=== PATIENT | female | born 1945 ===

== ENCOUNTER 2016-12-28 22:47 | Observation (INO) | payer MEDICAID ==
[2016-12-28 23:18] VITALS: BMI 18.8
--- NOTE | 2016-12-28 23:49 | ED PDOC ---
Arrival/HPI - General Chief Complaint: Fever Time Seen by Provider: 12/28/16 23:19 Historian: Patient, Family - History of Present Illness Narrative History of Present Illness (Text): 12/28/16 23:39 Mike Araya is a 71 year old female, whose past medical history includes diabetes, hypertension, papillary thyroid carcinoma, tracheostomy, and PEG tube , complaining of fever and progressively worsening weakness for 8 days. Patient' s daughter states that patient just came back from the [facility] 8 days ago and got a fever the next morning. Patient saw her ENT doctor the day after and was prescribed Levaquin for a cough productive of yellow phlegm, which she has been taking for the last 6 days. Patient's daughter notes that the patient has experienced fevers for 2 days and after taking Levaquin, experienced diarrhea for 1 day. Patient notes that she also has persistent productive coughs with yellow sputum. Patient denies any abdominal pain, nausea, vomiting, urinary symptoms, or any other complaint at this time. PMD: Dr. Lázaro Morris Time/Duration: > week Symptom Onset: Gradual Symptom Course: Worsening Severity Level: Moderate Activities at Onset: Rest Context: Home Past Medical History - Provider Review Nursing Documentation Reviewed: Yes - Infectious Disease Hx of Infectious Diseases: None - Tetanus Immunization Tetanus Immunization: Unknown - Cardiac Hx Hypertension: Yes - Pulmonary Other/Comment: Tracheostomy present - Neurological Hx Neurological Disorder: No Hx Alzheimer's Disease: No HX Cerebrovascular Accident: No Hx Dementia: No Hx Dizziness: No Hx Meningitis: No Hx Migraine: No Hx Parkinson's Disease: No Hx Seizures: No Hx Transient Ischemic Attacks (TIA): No - HEENT Hx HEENT Disorder: No Hx Blind: No Hx Cataracts: No Hx Deafness: No Hx Difficulty Chewing: No Hx Epistaxis: No Hx Glaucoma: No Hx Macular Degeneration: No - Renal Hx Renal Disorder: No Hx Dialysis: No Hx Kidney Stones: No Hx Neurogenic Bladder: No Hx Pyelonephritis: No Hx Renal Cancer: No Hx Renal Failure: No - Endocrine/Metabolic Other/Comment: Thyroid CA - Hematological/Oncological Hx Blood Disorders: No Hx AIDS: No Hx Anemia: No Hx Cancer: Yes Hx Chemotherapy: Yes Hx Cirrhosis: No Hx Hemophilia: No Hx Hepatitis A: No Hx Hepatitis B: No Hx Hepatitis C: No Hx Metastasis: No Hx Shingles: No Hx Sickle Cell Disease: No Hx Unexplained Bleeding: No - Integumentary Hx Dermatological Disorder: No Hx Basal Cell Carcinoma: No Hx Eczema: No Hx Melanoma: No Hx Psoriasis: No Hx Squamous Cell Carcinoma: No - Musculoskeletal/Rheumatological Hx Musculoskeletal Disorders: No Hx Arthritis: No Hx Degenerative Joint Disease: No Hx Falls: No Hx Gout: No Hx Herniated Disk: No Hx Myasthenia Gravis: No Hx Osteoarthritis: No Hx Osteomyelitis: No Hx Osteoporosis: No Hx Rhabdomyolysis: No Hx Spinal Stenosis: No Hx Unsteady Gait: No - Gastrointestinal Other/Comment: PEG tube present. - Genitourinary/Gynecological Hx Genitourinary Disorders: No Hx Hematuria: No Hx Incontinence: No Hx Prostate Problems: No Hx Sexually Transmitted Diseases: No - Psychiatric Hx Psychophysiologic Disorder: No Hx Anxiety: No Hx Bipolar Disorder: No Hx Depression: No Hx Emotional Abuse: No Hx Hallucinations: No Hx Panic Disorder: No Hx Post Traumatic Stress Disorder: No Hx Psychosis: No Hx Physical Abuse: No Hx Schizophrenia: No Hx Sexual Abuse: No Hx Substance Use: No - Surgical History Other/Comment: 3 thyroid sx, trach placement and peg tube - Anesthesia Hx Anesthesia: Yes - Suicidal Assessment Feels Threatened In Home Enviroment: No Family/Social History - Physician Review Nursing Documentation Reviewed: Yes Family/Social History: No Known Family HX Smoking Status: Unknown If Ever Smoked Hx Alcohol Use: No Hx Substance Use: No Allergies/Home Meds Allergies/Adverse Reactions: Allergies shellfish derived Allergy (Verified 12/28/16 23:20) ANAPHYLAXIS Home Medications: Home Meds Medication Instructions Recorded Confirmed Levothyroxine [Synthroid] 88 mcg PO DAILY 09/05/15 12/28/16 Metformin ER [Glucophage XR] 500 mg PO BID 09/05/15 12/28/16 Rosuvastatin Calcium [Crestor] 10 mg PO DAILY 09/05/15 12/28/16 SITagliptin [Januvia] 100 mg PO DAILY 09/05/15 12/28/16 amLODIPine [Norvasc] 10 mg PO DAILY 09/05/15 12/28/16 Losartan [Cozaar] 25 mg PO DAILY 12/28/16 12/28/16 Pantoprazole [Protonix] 40 mg PO DAILY 12/28/16 12/28/16 Review of Systems - Physician Review All systems were reviewed & negative as marked: Yes - Review of Systems Constitutional: Fevers, Other (generalized weakness). absent: Night Sweats Eyes: absent: Vision Changes ENT: absent: Hearing Changes Respiratory: Cough, Sputum. absent: SOB Cardiovascular: absent: Chest Pain Gastrointestinal: absent: Abdominal Pain Genitourinary Female: absent: Urine Output Changes Musculoskeletal: absent: Arthralgias Skin: absent: Rash Neurological: absent: Headache Endocrine: absent: Diaphoresis Hemo/Lymphatic: absent: Adenopathy Psychiatric: absent: Depression Physical Exam Vital Signs Reviewed: Yes Vital Signs Temp Pulse Resp BP Pulse Ox 12/29/16 04:07 80 16 111/59 L 96 12/28/16 23:54 98.4 F 12/28/16 23:17 98.6 F 84 18 112/81 96 Temperature: Afebrile Blood Pressure: Normal Pulse: Regular Respiratory Rate: Normal Pain Distress: None Mental Status: Positive for: Alert and Oriented X 3 - Systems Exam Head: Present: Atraumatic, Normocephalic Pupils: Present: PERRL Conjunctiva: Present: Normal Mouth: Present: Dry Pharnyx: Present: Normal. No: ERYTHEMA, EXUDATE Neck: Present: Normal Range of Motion, Other (trach) Respiratory/Chest: Present: Decreased Breath Sounds (at the bases). No: Respiratory Distress, Accessory Muscle Use Cardiovascular: Present: Regular Rate and Rhythm, Normal S1, S2. No: Murmurs Abdomen: Present: Normal Bowel Sounds, Feeding Tubes. No: Tenderness, Distention, Peritoneal Signs Back: Present: Normal Inspection Upper Extremity: Present: Normal Inspection. No: Cyanosis, Edema Lower Extremity: Present: Normal Inspection. No: Edema Neurological: Present: GCS=15, CN II-XII Intact, Speech Normal Skin: Present: Warm, Dry, Normal Color. No: Rashes Psychiatric: Present: Alert, Oriented x 3, Normal Insight, Normal Concentration Medical Decision Making ED Course and Treatment: 12/28/16 23:20 Impression: 71 year old female complaining of fever and progressively worsening weakness for 8 days. Differential Diagnosis included but are not limited to: pneumonia vs. travel related illness such as typhoid or less likely Dengue or less likely malaria vs atypical symptoms for PE Plan: -- Reassess and disposition Prior Visits: Notes and results from previous visits were reviewed. Patient last seen in the ED on 05/03/16 for posterior and frontal headache for the last 5 days. Patient was discharged home. Progress Notes: 12/29/16 01:27 Reviewed radiology, chest x-ray which is NAD. 12/29/16 05:08 Patient is an elderly female diabetic with a cancer history with recent international travel returning with fever, on levaquin. Patient with consolidation on CT scan of the chest. She continues to feel generalized weakness with a cough productive of greenish-yellow plegm. She has failed outpatient therapy and will need iv antibiotics. Also of note, levaquin may have partially treated travel-related illness which remains on the differential. 12/29/16 05:15 Will use maxipime and vanco. Case discussed with Dr. Brenner for placement on the hospitalist service. - Lab Interpretations Lab Results: 12/29/16 00:30 12/29/16 00:30 Lab Results 12/29/16 00:30: Free T4 1.25, TSH 3rd Generation 0.68 12/29/16 00:30: Sodium 135, Chloride 96 L, Potassium 4.7, Carbon Dioxide 32, Anion Gap 12, BUN 19, Creatinine 0.6, Est GFR ( Amer) > 60, Est GFR (Non- Af Amer) > 60, Random Glucose 94, Calcium 9.7, Phosphorus 3.7, Magnesium 2.2, Total Bilirubin 0.2, AST 44 H, ALT 37, Alkaline Phosphatase 157 H, Lactate Dehydrogenase 449, Total Creatine Kinase 40, Troponin I 0.03, NT-Pro-B Natriuret Pep 387, Total Protein 7.4, Albumin 4.0, Globulin 3.4, Albumin/ Globulin Ratio 1.2, Lipase 118 12/29/16 00:30: pO2 36, VBG pH 7.32, VBG pCO2 71.0 H*, VBG HCO3 36.6 H, VBG Total CO2 38.8 H, VBG O2 Sat (Calc) 70.7 H, VBG Base Excess 7.8 H, VBG Potassium 4.7, Sodium 136.0, Chloride 99.0, Glucose 96, Lactate 1.9, FiO2 21.0, Venous Blood Potassium 4.7 12/29/16 00:30: PT 9.8 L, INR 0.91 L, APTT 26.6, D-Dimer, Quantitative 0.95 H 12/29/16 00:30: WBC 5.0 D, RBC 4.53, Hgb 13.0, Hct 39.5, MCV 87.2, MCH 28.7, MCHC 32.9, RDW 12.3, Plt Count 417, MPV 8.4, Gran % 76.4 H, Lymph % (Auto) 10.2 L, [place] % (Auto) 9.4 H, Eos % (Auto) 3.4, Baso % (Auto) 0.6, Gran # 3.80, Lymph # 0.5 L, [place] # 0.5, Eos # 0.2, Baso # 0.03 12/29/16 00:20: Urine Color Yellow, Urine Appearance Clear, Urine pH 7.5, Ur Specific [place] 1.015, Urine Protein Negative, Urine Glucose (UA) Negative, Urine Ketones Negative, Urine Blood Negative, Urine Nitrate Negative, Urine Bilirubin Negative, Urine Urobilinogen 0.2, Ur Leukocyte Esterase Negative - RAD Interpretation Radiology Orders: 12/28/16 23:58 CHEST PORTABLE [RAD] Stat 12/29/16 02:16 ANGIO CHEST PE PROTOCOL [CT] Stat - EKG Interpretation EKG Interpretation (Text): 12/29/16 05:17 NSR @ 84 with early repol on ekg, unchanged; no other ST/T changes; normal intervals and normal axis. - Medication Orders Current Medication Orders: Cefepime HCl (Maxipime 1gm) 1 gm in 100 mls @ 100 mls/hr IVPB Q12 STA PRN Reason: Protocol Stop: 12/29/16 05:59 Vancomycin HCl (Vancomycin 1gm) 1 gm in 250 mls @ 133.333 mls/hr IVPB STAT STA PRN Reason: Protocol Stop: 12/29/16 06:55 Discontinued Medications Sodium Chloride (Sodium Chloride 0.9%) 1,000 mls @ 200 mls/hr IV .Q5H STA Stop: 12/29/16 05:00 Last Admin: 12/29/16 00:30 Dose: 200 mls/hr Iodixanol (Visipaque 320 Mg/Ml 100 Ml) Confirm Administered Dose 100 ml IV .STK- MED ONE Stop: 12/29/16 03:03 - Scribe Statement The provider has reviewed the documentation as recorded by the Nimco Avery Provider Scribe Attestation: All medical record entries made by the Scribe were at my direction and personally dictated by me. I have reviewed the chart and agree that the record accurately reflects my personal performance of the history, physical exam, medical decision making, and the department course for this patient. I have also personally directed, reviewed, and agree with the discharge instructions and disposition. Disposition/Present on Arrival - Present on Arrival Any Indicators Present on Arrival: Yes History of DVT/PE: No History of Uncontrolled Diabetes: Yes Urinary Catheter: No History of Decub. Ulcer: No History Surgical Site Infection Following: None - Disposition Have Diagnosis and Disposition been Completed?: Yes Diagnosis: Pneumonia Disposition: HOSPITALIZED Disposition Time: 17:05 Patient Plan: Observation Condition: FAIR Referrals: Lauryn Martinez, [Primary Care Provider] - Follow up with primary
[2016-12-29] MEDS ORDERED: Sodium Chloride 0.9% 1,000 ML IV STA (00:01)
[2016-12-29 00:42] LABS: ADD MANUAL DIFF? NO
[2016-12-29 00:54] LABS: VENOUS BLOOD GAS BASE EXCESS 7.8 mmol/L (0.0-2.0); VENOUS BLOOD PH 7.32 (7.32-7.43)
[2016-12-29 00:57] LABS: PH,URINE 7.5 (4.7-8.0); URINE BILIRUBIN NEGATIVE (NEGATIVE); URINE BLOOD NEGATIVE (NEGATIVE); URINE GLUCOSE (UA) NEGATIVE (NEGATIVE); URINE KETONE NEGATIVE (NEGATIVE); URINE LEUKOCYTE ESTERASE NEGATIVE Leu/uL (NEGATIVE); URINE PROTEIN NEGATIVE mg/dL (<30 mg/dL); URINE UROBILINOGEN 0.2 E.U./dL (<1 E.U./dL)
[2016-12-29 01:03] LABS: BASO # 0.03 K/mm3 (0.0-2.0); BASO % 0.6 % (0.0-3.0); EOS # 0.2 (0.0-0.7); EOS % 3.4 % (1.5-5.0); GRAN % 76.4 % (50.0-68.0); HEMATOCRIT 39.5 % (36.0-48.0); LYMPH # 0.5 (1.2-3.4); LYMPH % 10.2 % (22.0-35.0); MEAN CELL VOLUME 87.2 fL (80.0-105.0); MEAN CORPUSCULAR HEMOGLOBIN 28.7 pg (25.0-35.0); MEAN CORPUSCULAR HGB CONC 32.9 g/dl (31.0-37.0); MEAN PLATELET VOLUME 8.4 fl (7.0-11.0); MONO # 0.5 (0.1-0.6); MONO % 9.4 % (1.0-6.0); PLATELET COUNT 417 10^3/uL (120.0-450.0); RED CELL DISTRIBUTION WIDTH 12.3 % (11.5-14.5)
[2016-12-29 01:04] LABS: INR 0.91 (0.93-1.08); PARTIAL THROMBOPLASTIN TIME 26.6 Seconds (23.7-30.8)
[2016-12-29 01:07] LABS: ALB/GLOB RATIO 1.2 (1.1-1.8); ALKALINE PHOSPHATASE 157 U/L (38-133); ALT/SGPT 37 U/L (7-56); AST/SGOT 44 U/L (15-39); BILIRUBIN,TOTAL 0.2 mg/dL (0.2-1.3); BLOOD UREA NITROGEN 19 mg/dL (7-21); CALCIUM 9.7 mg/dL (8.4-10.5); CARBON DIOXIDE 32 mmol/L (21-33); CHLORIDE 96 mmol/L (98-107); GFR AFRICAN-AMERICAN > 60; GLUCOSE,RANDOM 94 mg/dL (70-110); LIPASE 118 U/L (23-300); MAGNESIUM 2.2 mg/dL (1.7-2.2); PHOSPHOROUS 3.7 mg/dL (2.5-4.5); POTASSIUM 4.7 mmol/L (3.6-5.0); SODIUM 135 mmol/L (132-148); TOTAL PROTEIN 7.4 g/dL (5.8-8.3)
[2016-12-29 01:13] LABS: URINE APPEARANCE CLEAR (CLEAR); URINE COLOR YELLOW (YELLOW)
[2016-12-29 01:19] LABS: TROPONIN I 0.03 ng/mL
[2016-12-29 01:24] LABS: FREE T4 1.25 ng/dL (0.78-2.19)
[2016-12-29 01:38] LABS: THYROID STIMULATING HORMONE 0.68 mIU/mL (0.46-4.68)
[2016-12-29 02:15] LABS: D DIMER 0.95 mg/L FEU (0-0.50)
[2016-12-29] MEDS ORDERED: Iodixanol 320 MG/ML 100 ML BOTTLE IV ONE (03:02)
--- NOTE | 2016-12-29 04:44 | CT ---
EXAM: CT Angiography Chest With Intravenous Contrast CLINICAL HISTORY: 71 years old, female; Signs and symptoms; Shortness of breath; Additional info: Generalized weakness, SOB - recent travel - R/O pe TECHNIQUE: Axial computed tomographic angiography images of the chest with intravenous contrast using pulmonary embolism protocol. This CT exam was performed using one or more of the following dose reduction techniques: automated exposure control, adjustment of the mA and/or kV according to patient size, and/or use of iterative reconstruction technique. MIP reconstructed images were created and reviewed. Coronal and sagittal reformatted images were created and reviewed. CONTRAST: 96 mL of VISI 320 administered intravenously. EXAM DATE/TIME: 12/29/2016 2:16 AM COMPARISON: CT - NECK CHEST W/O CONTR 09/05/2015 2:00:55 AM FINDINGS: Tracheostomy. Bilateral lower lung ground glass opacities more dense on the right. Consolidation in the posterior upper right lung some of which appears fibrotic suggesting chronicity. Small amount of right pleural fluid. Small platelike atelectasis lower lungs. No pulmonary embolism. No aortic dissection or aneurysm. IMPRESSION: Bilateral lower lung groundglass opacities much more prominent on the right, a nonspecific finding however could be indicative of developing infectious/inflammatory process or developing edema. Right upper lung consolidation and fibrosis. Small right pleural effusion.
[2016-12-29] MEDS ORDERED: Cefepime 1gm in NS 100ml 1 GM/100 ML BAG IVPB STA (05:00)
[2016-12-29] MEDS ORDERED: Vancomycin 1gm in NS 250ml 1 GM/250 ML BAG IVPB STA (05:03)
[2016-12-29] MEDS ORDERED: cefTRIAXone (Rocephin) 1 gm Inj IVPB SCH (05:45)
[2016-12-29] MEDS ORDERED: guaiFENesin-Codeine 100-10mg/5ml Syrup (5 ml) UD PO PRN (05:55)
--- NOTE | 2016-12-29 05:57 | CP.PCM.HP ---
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 Pt states she was taking levaquin from her ENT for the cough, which helped initially but then got worse. The [facility] [place] [facility] with her children visiting, and started to feel bad once she got back to the [facility]. Patient takes all of her feedings and meds through her PEG tube. The patient currently denies any SCRUGGS, CP, SOB, abdominal pain, N/V/D, dysuria/freq/urg, or lower extremity pain/swelling. Pmhx: as above Social: lives at home, independent in all IADL and ADL's amublates on her own, denies smoking/EtOH/ or illicit drug use Allergies: shellfish Surgeries: Tracheostomy and PEG tube placement Meds: Please refer to [facility] FamHx: brother with stomach and intenstinal cancer Present on Admission - Present on Admission Any Indicators Present on Admission: No History of DVT/PE: No History of Uncontrolled Diabetes: No Urinary Catheter: No Decubitus Ulcer Present: No Past Patient History - Infectious Disease Hx of Infectious Diseases: None - Tetanus Immunizations Tetanus Immunization: Unknown - Past Medical History & Family History Past Medical History?: No - Past Social History Smoking Status: Unknown If Ever Smoked - CARDIAC Hx Hypertension: Yes - PULMONARY Other/Comment: Tracheostomy present - NEUROLOGICAL Hx Neurological Disorder: No Hx Alzheimer's Disease: No HX Cerebrovascular Accident: No Hx Dementia: No Hx Dizziness: No Hx Meningitis: No Hx Migraine: No Hx Parkinson's Disease: No Hx Seizures: No Hx Transient Ischemic Attacks (TIA): No - HEENT Hx HEENT Problems: No Hx Blind: No Hx Cataracts: No Hx Deafness: No Hx Difficulty Chewing: No Hx Epistaxis: No Hx Glaucoma: No Hx Macular Degeneration: No - RENAL Hx Chronic Kidney Disease: No Hx Dialysis: No Hx Kidney Stones: No Hx Neurogenic Bladder: No Hx Pyelonephritis: No Hx Renal (Kidney) Cancer: No Hx Renal Failure: No - ENDOCRINE/METABOLIC Other/Comment: Thyroid CA - HEMATOLOGICAL/ONCOLOGICAL Hx Blood Disorders: No Hx AIDS: No Hx Anemia: No Hx Cancer: Yes Hx Chemotherapy: Yes Hx Cirrhosis: No Hx Hemophilia: No Hx Hepatitis A: No Hx Hepatitis B: No Hx Hepatitis C: No Hx Metastesis: No Hx Shingles: No Hx Sickle Cell Disease: No Hx Unexplained Bleeding: No - INTEGUMENTARY Hx Dermatological Problems: No Hx Basil Cell: No Hx Eczema: No Hx Melanoma: No Hx Psoriasis: No Hx Squamous Cell: No - MUSCULOSKELETAL/RHEUMATOLOGICAL Hx Musculoskeletal Disorders: No Hx Arthritis: No Hx Degenerative Joint Disease: No Hx Falls: No Hx Gout: No Hx Herniated Disk: No Hx Myasthenia Gravis: No Hx Osteoarthritis: No Hx Osteomyelitis: No Hx Osteoporosis: No Hx Rhabdomyolysis: No Hx Spinal Stenosis: No Hx Unsteady Gait: No - GASTROINTESTINAL Other/Comment: PEG tube present. - GENITOURINARY/GYNECOLOGICAL Hx Genitourinary Disorders: No Hx Hematuria: No Hx Incontinence: No Hx Sexually Transmitted Disorders: No - PSYCHIATRIC Hx Psychophysiologic Disorder: No Hx Anxiety: No Hx Bipolar Disorder: No Hx Depression: No Hx Emotional Abuse: No Hx Hallucinations: No Hx Panic Symptoms: No Hx Post Traumatic Stress Disorder: No Hx Psychosis: No Hx Physical Abuse: No Hx Schizophrenia: No Hx Sexual Abuse: No Hx Substance Use: No - SURGICAL HISTORY Other/Comment: 3 thyroid sx, trach placement and peg tube - ANESTHESIA Hx Anesthesia: Yes Meds Allergies/Adverse Reactions: Allergies Allergy/AdvReac Type Severity Reaction Status Date / Time shellfish derived Allergy ANAPHYLAXIS Verified 12/28/16 23:20 Physical Exam - Constitutional Appears: Well, Non-toxic Additional comments: resting comfortably in bed responding appropriately to questions in full sentences with trach tube and PEG tube; no signs of infection at either site - Head Exam Head Exam: ATRAUMATIC - Eye Exam Eye Exam: EOMI, Normal appearance - ENT Exam ENT Exam: Mucous Membranes Moist - Neck Exam Neck exam: Positive for: Full Rom - Respiratory Exam Respiratory Exam: Rales, Rhonchi, NORMAL BREATHING PATTERN. absent: Accessory Muscle Use, Chest Wall Tenderness, Decreased Breath Sounds, Clear to Auscultation Bilateral, Prolonged Expiratory Phase, Wheezes, Respiratory Distress, Stridor - Cardiovascular Exam Cardiovascular Exam: REGULAR RHYTHM, +S1, +S2 - GI/Abdominal Exam GI & Abdominal Exam: Normal Bowel Sounds, Soft - Extremities Exam Extremities exam: Positive for: calf tenderness - Back Exam Back exam: NORMAL INSPECTION. absent: CVA tenderness (L), CVA tenderness (R) - Neurological Exam Neurological exam: Alert, CN II-XII Intact, Oriented x3, Reflexes Normal - Psychiatric Exam Psychiatric exam: Normal Affect Results - Vital Signs Recent Vital Signs: Last Vital Signs Temp 98.4 F 12/28/16 23:54 Pulse 80 12/29/16 04:07 Resp 16 12/29/16 04:07 BP 111/59 L 12/29/16 04:07 Pulse Ox 96 12/29/16 04:07 - Labs Result Diagrams: 12/29/16 00:30 12/29/16 00:30 Assessment & Plan - Assessment and Plan (Free Text) Assessment: 71yo F admitted for CAP CAP -ceftriaxone and azithromycin; given Vanc and Cefepime in ED -patient has not been in the hospital within the last 6 months -No recorded fevers, no WBC, does not meet SIRS criteria, lactate WNL -bronchodilators, incentive spirometer, patient advised to walk around as much as possible -Robitussin w/ codeine for cough -sputum cultures ordered -f/u blood cultures diabetes -c/w sitagliptin -RISS Hypothyroidism -c/w home meds hypertension -c/w home meds papillary thyroid carcinoma -currently under management by [facility]; in remission PEG tube -will receive PEG tube feeding and meds through tube -patient brought her own feeding; glucerna also ordered Proph Pepcid Lovenox Tube feeding Case discussed with Dr. Elidia Kurtz PGY1 Night Float Decision To Admit - Pt Status Changed To: Hospital Disposition Of: Inpatient Admission - Admit Certification Admit to Inpatient:: After my assessment, the patient will require hospitalization for at least two midnights. This is because of the severity of symptoms shown, intensity of services needed, and/or the medical risk in this patient being treated as an outpatient. - . Bed Request Type: Med/Surg Admitting Physician: Shawn Brenner <Shawn Brenner - Last Filed: 12/30/16 03:47> Results - Vital Signs Recent Vital Signs: Last Vital Signs Temp 98.6 F 12/29/16 16:00 Pulse 86 12/29/16 16:00 Resp 18 12/29/16 16:00 BP 107/59 L 12/29/16 16:00 Pulse Ox 97 12/29/16 16:00 - Labs Result Diagrams: 12/29/16 00:30 12/29/16 00:30 Labs: Laboratory Results - last 24 hr 12/29/16 12/29/16 12/29/16 07:00 07:52 11:18 POC Glucose (mg/dL) 150 H 93 Procalcitonin < 0.05 L 12/29/16 12/29/16 16:14 21:09 POC Glucose (mg/dL) 166 H 249 H Procalcitonin Attending/Attestation - Attestation I have personally seen and examined this patient.: Yes I have fully participated in the care of the patient.: Yes I have reviewed all pertinent clinical information: Yes Notes (Text): 12/30/16 03:46 Patient was seen in [facility] Agree with history , physical examination, assessment and plan.
[2016-12-29] MEDS ORDERED: Sodium Chloride 0.9% 1,000 ML IV SCH (06:15)
[2016-12-29] MEDS: Albuterol 0.083% Inhal Sol (2.5 mg/3 mL) UD IH PRN ×3 (08:11→19:49)
[2016-12-29] MEDS: Insulin Lispro 1 UNITS/0.01 ML SC SCH ×4 (08:32→22:00)
--- NOTE | 2016-12-29 09:18 | RAD ---
HISTORY: Sepsis Patient COMPARISON: 09/05/2015 FINDINGS: LUNGS: No active pulmonary disease. PLEURA: No significant pleural effusion identified, no pneumothorax apparent. CARDIOVASCULAR: Normal. OSSEOUS STRUCTURES: No significant abnormalities. VISUALIZED UPPER ABDOMEN: Normal. OTHER FINDINGS: Tracheostomy IMPRESSION: No active disease.
[2016-12-29] MEDS ORDERED: cefTRIAXone 1 gm in NS 100ml IVPB SCH (10:00)
[2016-12-29] MEDS: Pantoprazole 40 mg EC Tab PO SCH (10:11)
[2016-12-29] MEDS: Levothyroxine 88 MCG TAB PO SCH (10:11)
[2016-12-29] MEDS: Azithromycin 500MG/NS 250ml 500 MG/250 ML BAG IVPB SCH (10:12)
[2016-12-29] MEDS: Enoxaparin 40 mg Syringe SC SCH (10:12)
[2016-12-29] MEDS: Cefepime IV 2 gm in NS 2 GM/100 ML BAG IVPB SCH ×3 (10:50→21:51)
[2016-12-29] MEDS: Acetylcysteine 20% Inhal Soln (4ml) IH SCH ×2 (13:49→19:49)
--- NOTE | 2016-12-29 18:09 | CP.PCM.CON ---
History of Present Illness - History of Present Illness History of Present Illness: 71 year old female with PMH of DM, HTN, papillary thyroid carcinoma, S/P tracheostomy 3 years ago, S/P PEG tube placement came in to [facility] complaining of shortness of breath, cough and subjective fevers as well as greenish phlegm for the past 2 weeks. She just came back from a vacation to the [facility] about a month ago. She denies headache or dizziness, no chest pain, no sore throat, no rhinorrhea, no abdominal pain, no diarrhea, no dysuria. She denies animal contacts in the [facility], no swimming and no camping out in the [facility]. The patient saw her ENT last week and has been prescribed Levaquin but the patient is still having cough and SOB. In the ED, CT chest was done which showed infiltrates. Infectious Diseases consult is requested to further evaluate and manage. Review of Systems - Review of Systems All systems: reviewed and no additional remarkable complaints except (as per HPI ) Past Patient History - Infectious Disease Hx of Infectious Diseases: None - Tetanus Immunizations Tetanus Immunization: Unknown - Past Medical History & Family History Past Medical History?: No - Past Social History Smoking Status: Unknown If Ever Smoked - CARDIAC Hx Hypertension: Yes - PULMONARY Other/Comment: Tracheostomy present - NEUROLOGICAL Hx Neurological Disorder: No Hx Alzheimer's Disease: No HX Cerebrovascular Accident: No Hx Dementia: No Hx Dizziness: No Hx Meningitis: No Hx Migraine: No Hx Parkinson's Disease: No Hx Seizures: No Hx Transient Ischemic Attacks (TIA): No - HEENT Hx HEENT Problems: No Hx Blind: No Hx Cataracts: No Hx Deafness: No Hx Difficulty Chewing: No Hx Epistaxis: No Hx Glaucoma: No Hx Macular Degeneration: No - RENAL Hx Chronic Kidney Disease: No Hx Dialysis: No Hx Kidney Stones: No Hx Neurogenic Bladder: No Hx Pyelonephritis: No Hx Renal (Kidney) Cancer: No Hx Renal Failure: No - ENDOCRINE/METABOLIC Other/Comment: Thyroid CA - HEMATOLOGICAL/ONCOLOGICAL Hx Blood Disorders: No Hx AIDS: No Hx Anemia: No Hx Cancer: Yes Hx Chemotherapy: Yes Hx Cirrhosis: No Hx Hemophilia: No Hx Hepatitis A: No Hx Hepatitis B: No Hx Hepatitis C: No Hx Metastesis: No Hx Shingles: No Hx Sickle Cell Disease: No Hx Unexplained Bleeding: No - INTEGUMENTARY Hx Dermatological Problems: No Hx Basil Cell: No Hx Eczema: No Hx Melanoma: No Hx Psoriasis: No Hx Squamous Cell: No - MUSCULOSKELETAL/RHEUMATOLOGICAL Hx Musculoskeletal Disorders: No Hx Arthritis: No Hx Degenerative Joint Disease: No Hx Falls: No Hx Gout: No Hx Herniated Disk: No Hx Myasthenia Gravis: No Hx Osteoarthritis: No Hx Osteomyelitis: No Hx Osteoporosis: No Hx Rhabdomyolysis: No Hx Spinal Stenosis: No Hx Unsteady Gait: No - GASTROINTESTINAL Other/Comment: PEG tube present. - GENITOURINARY/GYNECOLOGICAL Hx Genitourinary Disorders: No Hx Hematuria: No Hx Incontinence: No Hx Sexually Transmitted Disorders: No - PSYCHIATRIC Hx Psychophysiologic Disorder: No Hx Anxiety: No Hx Bipolar Disorder: No Hx Depression: No Hx Emotional Abuse: No Hx Hallucinations: No Hx Panic Symptoms: No Hx Post Traumatic Stress Disorder: No Hx Psychosis: No Hx Physical Abuse: No Hx Schizophrenia: No Hx Sexual Abuse: No Hx Substance Use: No - SURGICAL HISTORY Other/Comment: 3 thyroid sx, trach placement and peg tube - ANESTHESIA Hx Anesthesia: Yes Meds Allergies/Adverse Reactions: Allergies Allergy/AdvReac Type Severity Reaction Status Date / Time shellfish derived Allergy ANAPHYLAXIS Verified 12/28/16 23:20 - Medications Medications: Current Medications Acetaminophen (Tylenol 325mg Tab) 650 mg PO Q6H PRN PRN Reason: Fever >100.4 F Acetylcysteine (Acetylcysteine 20%) 4 ml IH [id number] FREDDY Albuterol Sulfate (Albuterol 0.083% Inhal Michelle (2.5 Mg/3 Ml) Ud) 2.5 mg IH Q2H PRN PRN Reason: Shortness of Breath Last Admin: 12/29/16 08:11 Dose: 2.5 mg Amlodipine Besylate (Norvasc) 10 mg PO DAILY [facility] Atorvastatin Calcium (Lipitor) 40 mg PO DAILY [facility] Enoxaparin Sodium (Lovenox) 40 mg SC DAILY FREDDY PRN Reason: Protocol Guaifenesin/Codeine Phosphate (Robitussin W/Codeine) 5 ml PO Q4H PRN PRN Reason: Cough and congestion Azithromycin (Zithromax 500mg In Ns) 500 mg in 250 mls @ 167 mls/hr IVPB DAILY [facility] PRN Reason: Protocol Ceftriaxone Sodium (Rocephin 1 Gram Ivpb) 1 gm in 100 mls @ 100 mls/hr IVPB DAILY [facility] Sodium Chloride (Sodium Chloride 0.9%) 1,000 mls @ 100 mls/hr IV .Q10H FREDDY Ibuprofen (Motrin Tab) 600 mg PO Q6H PRN PRN Reason: Pain, Mild (1-3) Insulin Human Lispro (Humalog) 0 units SC ACHS FREDDY PRN Reason: Protocol Last Admin: 12/29/16 08:32 Dose: Not Given Levothyroxine Sodium (Synthroid) 88 mcg PO DAILY [facility] Losartan Potassium (Cozaar) 25 mg PO DAILY [facility] Pantoprazole Sodium (Protonix Ec Tab) 40 mg PO DAILY [facility] Sitagliptin Phosphate (Januvia) 100 mg PO DAILY [facility] Physical Exam - Constitutional Appears: Non-toxic, No Acute Distress - Head Exam Head Exam: NORMAL INSPECTION - ENT Exam ENT Exam: Mucous Membranes Moist Additional comments: tracheostomy in place - Neck Exam Neck exam: Negative for: Lymphadenopathy, Meningismus - Respiratory Exam Respiratory Exam: Decreased Breath Sounds, Rales (scattered) - Cardiovascular Exam Cardiovascular Exam: +S1, +S2 - GI/Abdominal Exam GI & Abdominal Exam: Soft. absent: Tenderness Results - Vital Signs Recent Vital Signs: Last Vital Signs Temp 98.4 F 12/28/16 23:54 Pulse 80 12/29/16 08:15 Resp 16 12/29/16 06:04 BP 118/65 12/29/16 06:04 Pulse Ox 97 12/29/16 06:04 - Labs Result Diagrams: 12/29/16 00:30 12/29/16 00:30 Labs: Laboratory Results - last 24 hr 12/29/16 07:52 POC Glucose (mg/dL) 150 H Assessment & Plan - Assessment and Plan (Free Text) Plan: Assessment Consider multifocal healthcare-associated pneumonia DM HTN papillary thyroid carcinoma S/P tracheostomy 3 years ago S/P PEG tube placement Plan Started patient on Vancomycin, Cefepime and Zithromax pending blood, sputum cx, urine Legionella Ag, PCT; reviewed CT chest will follow clinically
[2016-12-29] MEDS: Vancomycin 1.5 GM in Sodium Chloride 0.9% 500 ML IVPB SCH (21:52)
[2016-12-30] MEDS: Acetylcysteine 20% Inhal Soln (4ml) IH SCH ×4 (02:30→20:00)
[2016-12-30] MEDS: Albuterol 0.083% Inhal Sol (2.5 mg/3 mL) UD IH PRN ×3 (02:30→14:01)
[2016-12-30] MEDS: Cefepime IV 2 gm in NS 2 GM/100 ML BAG IVPB SCH ×2 (05:20→14:45)
[2016-12-30] MEDS: Insulin Lispro 1 UNITS/0.01 ML SC SCH ×3 (07:37→17:38)
[2016-12-30 08:02] LABS: ADD MANUAL DIFF? NO
[2016-12-30 08:07] LABS: BASO # 0.02 K/mm3 (0.0-2.0); BASO % 0.3 % (0.0-3.0); EOS # 0.1 (0.0-0.7); EOS % 1.8 % (1.5-5.0); GRAN # 5.05 (1.4-6.5); GRAN % 81.2 % (50.0-68.0); HEMATOCRIT 38.6 % (36.0-48.0); LYMPH # 0.7 (1.2-3.4); LYMPH % 10.6 % (22.0-35.0); MEAN CELL VOLUME 86.7 fL (80.0-105.0); MEAN CORPUSCULAR HEMOGLOBIN 28.3 pg (25.0-35.0); MEAN CORPUSCULAR HGB CONC 32.6 g/dl (31.0-37.0); MEAN PLATELET VOLUME 8.6 fl (7.0-11.0); MONO # 0.4 (0.1-0.6); MONO % 6.1 % (1.0-6.0); PLATELET COUNT 455 10^3/uL (120.0-450.0); RED CELL DISTRIBUTION WIDTH 12.3 % (11.5-14.5); WHITE BLOOD COUNT 6.2 10^3/ul (4.5-11.0)
[2016-12-30 08:16] LABS: ALB/GLOB RATIO 1.3 (1.1-1.8); ALKALINE PHOSPHATASE 135 U/L (38-133); ALT/SGPT 36 U/L (7-56); AST/SGOT 35 U/L (15-39); BILIRUBIN,TOTAL 0.3 mg/dL (0.2-1.3); BLOOD UREA NITROGEN 11 mg/dL (7-21); CALCIUM 9.1 mg/dL (8.4-10.5); CARBON DIOXIDE 29 mmol/L (21-33); CHLORIDE 101 mmol/L (98-107); GFR AFRICAN-AMERICAN > 60; GLUCOSE,RANDOM 99 mg/dL (70-110); POTASSIUM 3.9 mmol/L (3.6-5.0); SODIUM 141 mmol/L (132-148); TOTAL PROTEIN 7.2 g/dL (5.8-8.3)
[2016-12-30] MEDS: Pantoprazole 40 mg EC Tab PO SCH (10:25)
[2016-12-30] MEDS: Enoxaparin 40 mg Syringe SC SCH (10:25)
[2016-12-30] MEDS: Levothyroxine 88 MCG TAB PO SCH (10:25)
[2016-12-30] MEDS: Azithromycin 500MG/NS 250ml 500 MG/250 ML BAG IVPB SCH (10:26)
[2016-12-30] MEDS: Vancomycin 1.5 GM in Sodium Chloride 0.9% 500 ML IVPB SCH (12:27)
--- NOTE | 2016-12-30 15:30 | CP.PCM.PN ---
Subjective - Date & Time of Evaluation Date of Evaluation: 12/30/16 Time of Evaluation: 12:15 - Subjective Subjective: Patient is feeling better today, no fevers overnight, feeling better, not in distress, no diarrhea. Objective - Vital Signs/Intake and Output Vital Signs (last 24 hours): Temp Pulse Resp BP Pulse Ox 97.8 F 81 20 118/59 L 97 12/30/16 08:21 12/30/16 10:25 12/30/16 08:21 12/30/16 10:25 12/30/16 08:21 Intake and Output: 12/30/16 12/30/16 06:59 18:59 Intake Total 1250 Balance 1250 - Medications Medications: Current Medications Acetaminophen (Tylenol 325mg Tab) 650 mg PO Q6H PRN PRN Reason: Fever >100.4 F Acetylcysteine (Acetylcysteine 20%) 4 ml IH [id number] FREDDY Last Admin: 12/30/16 08:09 Dose: 4 ml Albuterol Sulfate (Albuterol 0.083% Inhal Michelle (2.5 Mg/3 Ml) Ud) 2.5 mg IH Q2H PRN PRN Reason: Shortness of Breath Last Admin: 12/30/16 08:09 Dose: 2.5 mg Amlodipine Besylate (Norvasc) 10 mg PO DAILY [facility] Last Admin: 12/30/16 10:25 Dose: 10 mg Atorvastatin Calcium (Lipitor) 40 mg PO DAILY [facility]ED[facility] Last Admin: 12/30/16 10:25 Dose: 40 mg Enoxaparin Sodium (Lovenox) 40 mg SC DAILY [facility] PRN Reason: Protocol Last Admin: 12/30/16 10:25 Dose: 40 mg Guaifenesin/Codeine Phosphate (Robitussin W/Codeine) 5 ml PO Q4H PRN PRN Reason: Cough and congestion Last Admin: 12/29/16 22:15 Dose: 5 ml Azithromycin (Zithromax 500mg In Ns) 500 mg in 250 mls @ 167 mls/hr IVPB DAILY [facility]DY PRN Reason: Protocol Last Admin: 12/30/16 10:26 Dose: 167 mls/hr Sodium Chloride (Sodium Chloride 0.9%) 1,000 mls @ 100 mls/hr IV .Q10H FREDDY Cefepime HCl (Maxipime 2gm) 2 gm in 100 mls @ 100 mls/hr IVPB Q8 FREDDY PRN Reason: Protocol Stop: 01/03/17 09:46 Last Admin: 12/30/16 05:20 Dose: 100 mls/hr Vancomycin HCl 1.5 gm/ Sodium (Chloride) 500 mls @ 333.333 mls/hr IVPB Q12H FREDDY PRN Reason: Protocol Last Admin: 12/29/16 21:52 Dose: 333.333 mls/hr Ibuprofen (Motrin Tab) 600 mg PO Q6H PRN PRN Reason: Pain, Mild (1-3) Insulin Human Lispro (Humalog) 0 units SC ACHS FREDDY PRN Reason: Protocol Last Admin: 12/29/16 22:00 Dose: Not Given Levothyroxine Sodium (Synthroid) 88 mcg PO DAILY [facility] Last Admin: 12/30/16 10:25 Dose: 88 mcg Losartan Potassium (Cozaar) 25 mg PO DAILY [facility] Last Admin: 12/30/16 10:25 Dose: 25 mg Pantoprazole Sodium (Protonix Ec Tab) 40 mg PO DAILY [facility] Last Admin: 12/30/16 10:25 Dose: 40 mg Sitagliptin Phosphate (Januvia) 100 mg PO DAILY [facility] Last Admin: 12/30/16 10:25 Dose: 100 mg - Labs Labs: 12/30/16 08:01 12/30/16 07:59 PT 9.8 Seconds (9.9-11.8) L 12/29/16 00:30 INR 0.91 (0.93-1.08) L 12/29/16 00:30 APTT 26.6 Seconds (23.7-30.8) 12/29/16 00:30 - Constitutional Appears: Non-toxic, No Acute Distress - Head Exam Head Exam: NORMAL INSPECTION - ENT Exam ENT Exam: Mucous Membranes Moist - Neck Exam Neck Exam: absent: Lymphadenopathy, Meningismus Additional comments: tracheostomy in place - Respiratory Exam Respiratory Exam: Decreased Breath Sounds - Cardiovascular Exam Cardiovascular Exam: +S1, +S2 - GI/Abdominal Exam GI & Abdominal Exam: Soft. absent: Tenderness Assessment and Plan - Assessment and Plan (Free Text) Plan: Assessment Consider multifocal healthcare-associated pneumonia, clinically improving DM HTN papillary thyroid carcinoma S/P tracheostomy 3 years ago S/P PEG tube placement Plan on Vancomycin, Cefepime and Zithromax day 2; blood negative, PCT only <0.05; reviewed CT chest; when ready for discharge, the patient can be switched to PO Augmentin and PO Zithromax to complete another 5-7 days with follow up with PMD discussed with Dr. Harding
--- NOTE | 2016-12-30 16:17 | CARD ---
APPROVED REPORT EKG Measurement Heart [id number] [id number] <Conclusion> Normal sinus rhythm Early repolarization Normal ECG
--- NOTE | 2016-12-30 16:34 | CP.PCM.DIS ---
<Lionel Eaton - Last Filed: 12/30/16 16:34> Provider - Provider Date of Admission: 12/29/16 05:05 Attending physician: Alessandra Harding MD Primary care physician: NO PRIMARY CARE PROVIDER Consults: ID Time Spent in preparation of Discharge (in minutes): 45 Hospital Course - Lab Results Lab Results: Most Recent Lab Values WBC 6.2 10^3/ul (4.5-11.0) D 12/30/16 08:01 RBC 4.45 10^6/uL (3.5-6.1) 12/30/16 08:01 Hgb 12.6 gm/dL (12.0-16.0) 12/30/16 08:01 Hct 38.6 % (36.0-48.0) 12/30/16 08:01 MCV 86.7 fL (80.0-105.0) 12/30/16 08:01 MCH 28.3 pg (25.0-35.0) 12/30/16 08:01 MCHC 32.6 g/dl (31.0-37.0) 12/30/16 08:01 RDW 12.3 % (11.5-14.5) 12/30/16 08:01 Plt Count 455 10^3/uL (120.0-450.0) H 12/30/16 08:01 MPV 8.6 fl (7.0-11.0) 12/30/16 08:01 Gran % 81.2 % (50.0-68.0) H 12/30/16 08:01 Lymph % (Auto) 10.6 % (22.0-35.0) L 12/30/16 08:01 [place] % (Auto) 6.1 % (1.0-6.0) H 12/30/16 08:01 Eos % (Auto) 1.8 % (1.5-5.0) 12/30/16 08:01 Baso % (Auto) 0.3 % (0.0-3.0) 12/30/16 08:01 Gran # 5.05 (1.4-6.5) 12/30/16 08:01 Lymph # 0.7 (1.2-3.4) L 12/30/16 08:01 [place] # 0.4 (0.1-0.6) 12/30/16 08:01 Eos # 0.1 (0.0-0.7) 12/30/16 08:01 Baso # 0.02 K/mm3 (0.0-2.0) 12/30/16 08:01 PT 9.8 Seconds (9.9-11.8) L 12/29/16 00:30 INR 0.91 (0.93-1.08) L 12/29/16 00:30 APTT 26.6 Seconds (23.7-30.8) 12/29/16 00:30 D-Dimer, Quantitative 0.95 mg/L FEU (0-0.50) H 12/29/16 00:30 pO2 36 mm/Hg (30-55) 12/29/16 00:30 VBG pH 7.32 (7.32-7.43) 12/29/16 00:30 VBG pCO2 71.0 (40-60) H* 12/29/16 00:30 VBG HCO3 36.6 mmol/l (21-28) H 12/29/16 00:30 VBG Total CO2 38.8 mmol.L (22-28) H 12/29/16 00:30 VBG O2 Sat (Calc) 70.7 % (40-65) H 12/29/16 00:30 VBG Base Excess 7.8 mmol/L (0.0-2.0) H 12/29/16 00:30 VBG Potassium 4.7 mmol/L (3.6-5.2) 12/29/16 00:30 Sodium 136.0 mmol/L (132-148) 12/29/16 00:30 Chloride 99.0 mmol/L (98-107) 12/29/16 00:30 Glucose 96 mg/dl (65-105) 12/29/16 00:30 Lactate 1.9 mmol/L (0.7-2.1) 12/29/16 00:30 FiO2 21.0 % 12/29/16 00:30 Sodium 141 mmol/L (132-148) 12/30/16 07:59 Potassium 3.9 mmol/L (3.6-5.0) 12/30/16 07:59 Chloride 101 mmol/L (98-107) 12/30/16 07:59 Carbon Dioxide 29 mmol/L (21-33) 12/30/16 07:59 Anion Gap 15 (10-20) 12/30/16 07:59 BUN 11 mg/dL (7-21) 12/30/16 07:59 Creatinine 0.4 mg/dL (0.5-1.4) L 12/30/16 07:59 Est GFR ( Amer) > 60 12/30/16 07:59 Est GFR (Non-Af Amer) > 60 12/30/16 07:59 POC Glucose (mg/dL) 152 mg/dL (65-110) H 12/30/16 16:20 Random Glucose 99 mg/dL (70-110) 12/30/16 07:59 Calcium 9.1 mg/dL (8.4-10.5) 12/30/16 07:59 Phosphorus 3.7 mg/dL (2.5-4.5) 12/29/16 00:30 Magnesium 2.2 mg/dL (1.7-2.2) 12/29/16 00:30 Total Bilirubin 0.3 mg/dL (0.2-1.3) 12/30/16 07:59 AST 35 U/L (15-39) 12/30/16 07:59 ALT 36 U/L (7-56) 12/30/16 07:59 Alkaline Phosphatase 135 U/L (38-133) H 12/30/16 07:59 Lactate Dehydrogenase 449 U/L (333-699) 12/29/16 00:30 Total Creatine Kinase 40 U/L (35-230) 12/29/16 00:30 Troponin I 0.03 ng/mL 12/29/16 00:30 NT-Pro-B Natriuret Pep 387 pg/mL (0-450) 12/29/16 00:30 Total Protein 7.2 g/dL (5.8-8.3) 12/30/16 07:59 Albumin 4.0 g/dL (3.0-4.8) 12/30/16 07:59 Globulin 3.2 gm/dL 12/30/16 07:59 Albumin/Globulin Ratio 1.3 (1.1-1.8) 12/30/16 07:59 Lipase 118 U/L (23-300) 12/29/16 00:30 Procalcitonin < 0.05 NG/ML (0.19-0.49) L 12/29/16 07:00 Free T4 1.25 ng/dL (0.78-2.19) 12/29/16 00:30 TSH 3rd Generation 0.68 mIU/mL (0.46-4.68) 12/29/16 00:30 Venous Blood Potassium 4.7 mmol/L (3.6-5.2) 12/29/16 00:30 Urine Color Yellow (YELLOW) 12/29/16 00:20 Urine Appearance Clear (CLEAR) 12/29/16 00:20 Urine pH 7.5 (4.7-8.0) 12/29/16 00:20 Ur Specific [place] 1.015 (1.005-1.035) 12/29/16 00:20 Urine Protein Negative mg/dL (<30 mg/dL) 12/29/16 00:20 Urine Glucose (UA) Negative mg/dL (NEGATIVE) 12/29/16 00:20 Urine Ketones Negative mg/dL (NEGATIVE) 12/29/16 00:20 Urine Blood Negative (NEGATIVE) 12/29/16 00:20 Urine Nitrate Negative (NEGATIVE) 12/29/16 00:20 Urine Bilirubin Negative (NEGATIVE) 12/29/16 00:20 Urine Urobilinogen 0.2 E.U./dL (<1 E.U./dL) 12/29/16 00:20 Ur Leukocyte Esterase Negative Basil/uL (NEGATIVE) 12/29/16 00:20 - Hospital Course Hospital Course: 71yo F w/ a PMhx of diabetes, hypertension, papillary thyroid carcinoma, hypothyroidism, tracheostomy, and 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 In the ED basic labwork was done. EKG showed NSR, early repol with 84bmp. She was afebrile with no leukocytosis. CXR showed no active disease. CT chest showed: b/l lower lung groundglass opacities R>L, can indicate infection/ inflammation and developing edema, R upper lung consolidation and fibrosis, small pleural effusion. Antibiotics was started and patent was admitted to the floor for pneumonia. ID was consulted and started patient on Vancomycin, Cefepime and Zithromax. Pt remained stable. Today she states her symptoms are much improved. Denies any complaints at this time. She denies any greene, dizziness, f/c, sob, cp, abd pain, n/v/d. Discharge Exam - Head Exam Head Exam: NORMAL INSPECTION - Eye Exam Eye Exam: EOMI, Normal appearance, PERRL Pupil Exam: NORMAL ACCOMODATION, PERRL - Respiratory Exam Respiratory Exam: Clear to PA & Lateral. absent: Rales, Rhonchi, Wheezes - Cardiovascular Exam Cardiovascular Exam: REGULAR RHYTHM, RRR, +S1, +S2 - GI/Abdominal Exam GI & Abdominal Exam: Normal Bowel Sounds, Soft. absent: Tenderness - Neurological Exam Neurological exam: Alert, CN II-XII Intact, Normal Gait, Oriented x3, Reflexes Normal - Psychiatric Exam Psychiatric exam: Normal Affect, Normal Mood - Skin Skin Exam: Dry, Intact, Normal Color, Warm Discharge Plan - Discharge Medications Prescriptions: Amoxicillin/Clavulanate [Augmentin 875 MG-125 MG] 875 tab PO BID #14 tab Azithromycin [Zithromax] 500 mg PO DAILY #5 tab - Follow Up Plan Condition: IMPROVED Disposition: HOME/ ROUTINE Patient education suggested?: Yes Additional Instructions: Follow up with your PMD with in next 2-3 days. If your symptoms recur come back to the closest ED. Take your medications/ antibiotics as prescribed. Referrals: PCP,NO [Primary Care Provider] - <Alessandra Harding - Last Filed: 12/30/16 17:15> Provider - Provider Date of Admission: 12/29/16 05:05 Attending physician: Alessandra Harding MD Primary care physician: NO PRIMARY CARE PROVIDER Hospital Course - Lab Results Lab Results: Most Recent Lab Values WBC 6.2 10^3/ul (4.5-11.0) D 12/30/16 08:01 RBC 4.45 10^6/uL (3.5-6.1) 12/30/16 08:01 Hgb 12.6 gm/dL (12.0-16.0) 12/30/16 08:01 Hct 38.6 % (36.0-48.0) 12/30/16 08:01 MCV 86.7 fL (80.0-105.0) 12/30/16 08:01 MCH 28.3 pg (25.0-35.0) 12/30/16 08:01 MCHC 32.6 g/dl (31.0-37.0) 12/30/16 08:01 RDW 12.3 % (11.5-14.5) 12/30/16 08:01 Plt Count 455 10^3/uL (120.0-450.0) H 12/30/16 08:01 MPV 8.6 fl (7.0-11.0) 12/30/16 08:01 Gran % 81.2 % (50.0-68.0) H 12/30/16 08:01 Lymph % (Auto) 10.6 % (22.0-35.0) L 12/30/16 08:01 [place] % (Auto) 6.1 % (1.0-6.0) H 12/30/16 08:01 Eos % (Auto) 1.8 % (1.5-5.0) 12/30/16 08:01 Baso % (Auto) 0.3 % (0.0-3.0) 12/30/16 08:01 Gran # 5.05 (1.4-6.5) 12/30/16 08:01 Lymph # 0.7 (1.2-3.4) L 12/30/16 08:01 [place] # 0.4 (0.1-0.6) 12/30/16 08:01 Eos # 0.1 (0.0-0.7) 12/30/16 08:01 Baso # 0.02 K/mm3 (0.0-2.0) 12/30/16 08:01 PT 9.8 Seconds (9.9-11.8) L 12/29/16 00:30 INR 0.91 (0.93-1.08) L 12/29/16 00:30 APTT 26.6 Seconds (23.7-30.8) 12/29/16 00:30 D-Dimer, Quantitative 0.95 mg/L FEU (0-0.50) H 12/29/16 00:30 pO2 36 mm/Hg (30-55) 12/29/16 00:30 VBG pH 7.32 (7.32-7.43) 12/29/16 00:30 VBG pCO2 71.0 (40-60) H* 12/29/16 00:30 VBG HCO3 36.6 mmol/l (21-28) H 12/29/16 00:30 VBG Total CO2 38.8 mmol.L (22-28) H 12/29/16 00:30 VBG O2 Sat (Calc) 70.7 % (40-65) H 12/29/16 00:30 VBG Base Excess 7.8 mmol/L (0.0-2.0) H 12/29/16 00:30 VBG Potassium 4.7 mmol/L (3.6-5.2) 12/29/16 00:30 Sodium 136.0 mmol/L (132-148) 12/29/16 00:30 Chloride 99.0 mmol/L (98-107) 12/29/16 00:30 Glucose 96 mg/dl (65-105) 12/29/16 00:30 Lactate 1.9 mmol/L (0.7-2.1) 12/29/16 00:30 FiO2 21.0 % 12/29/16 00:30 Sodium 141 mmol/L (132-148) 12/30/16 07:59 Potassium 3.9 mmol/L (3.6-5.0) 12/30/16 07:59 Chloride 101 mmol/L (98-107) 12/30/16 07:59 Carbon Dioxide 29 mmol/L (21-33) 12/30/16 07:59 Anion Gap 15 (10-20) 12/30/16 07:59 BUN 11 mg/dL (7-21) 12/30/16 07:59 Creatinine 0.4 mg/dL (0.5-1.4) L 12/30/16 07:59 Est GFR ( Amer) > 60 12/30/16 07:59 Est GFR (Non-Af Amer) > 60 12/30/16 07:59 POC Glucose (mg/dL) 152 mg/dL (65-110) H 12/30/16 16:20 Random Glucose 99 mg/dL (70-110) 12/30/16 07:59 Calcium 9.1 mg/dL (8.4-10.5) 12/30/16 07:59 Phosphorus 3.7 mg/dL (2.5-4.5) 12/29/16 00:30 Magnesium 2.2 mg/dL (1.7-2.2) 12/29/16 00:30 Total Bilirubin 0.3 mg/dL (0.2-1.3) 12/30/16 07:59 AST 35 U/L (15-39) 12/30/16 07:59 ALT 36 U/L (7-56) 12/30/16 07:59 Alkaline Phosphatase 135 U/L (38-133) H 12/30/16 07:59 Lactate Dehydrogenase 449 U/L (333-699) 12/29/16 00:30 Total Creatine Kinase 40 U/L (35-230) 12/29/16 00:30 Troponin I 0.03 ng/mL 12/29/16 00:30 NT-Pro-B Natriuret Pep 387 pg/mL (0-450) 12/29/16 00:30 Total Protein 7.2 g/dL (5.8-8.3) 12/30/16 07:59 Albumin 4.0 g/dL (3.0-4.8) 12/30/16 07:59 Globulin 3.2 gm/dL 12/30/16 07:59 Albumin/Globulin Ratio 1.3 (1.1-1.8) 12/30/16 07:59 Lipase 118 U/L (23-300) 12/29/16 00:30 Procalcitonin < 0.05 NG/ML (0.19-0.49) L 12/29/16 07:00 Free T4 1.25 ng/dL (0.78-2.19) 12/29/16 00:30 TSH 3rd Generation 0.68 mIU/mL (0.46-4.68) 12/29/16 00:30 Venous Blood Potassium 4.7 mmol/L (3.6-5.2) 12/29/16 00:30 Urine Color Yellow (YELLOW) 12/29/16 00:20 Urine Appearance Clear (CLEAR) 12/29/16 00:20 Urine pH 7.5 (4.7-8.0) 12/29/16 00:20 Ur Specific [place] 1.015 (1.005-1.035) 12/29/16 00:20 Urine Protein Negative mg/dL (<30 mg/dL) 12/29/16 00:20 Urine Glucose (UA) Negative mg/dL (NEGATIVE) 12/29/16 00:20 Urine Ketones Negative mg/dL (NEGATIVE) 12/29/16 00:20 Urine Blood Negative (NEGATIVE) 12/29/16 00:20 Urine Nitrate Negative (NEGATIVE) 12/29/16 00:20 Urine Bilirubin Negative (NEGATIVE) 12/29/16 00:20 Urine Urobilinogen 0.2 E.U./dL (<1 E.U./dL) 12/29/16 00:20 Ur Leukocyte Esterase Negative Basil/uL (NEGATIVE) 12/29/16 00:20 Attending/Attestation - Attestation I have personally seen and examined this patient.: Yes I have fully participated in the care of the patient.: Yes I have reviewed all pertinent clinical information, including history, physical exam and plan: Yes Notes (Text): 12/30/16 17:12 71 year old female with past medical history of hypertension, diabetes, hypothyroidism, papillary thyroid carcinoma, history of tracheostomy and PEG who presented with cough and shortness of breath secondary to pneumonia as seen on CT chest. She was started on iv antibiotics with improvement of symptoms. Case was discusssed with ID and she is cleared for discharge on po augmentin and azithromycin. She is to follow up with her pmd. Alessandra Harding MD Hospitalist.
[2016-12-30 16:53] VITALS: BP 119/62; PULSE 92; RESP 18; TEMP 97.9; O2SAT 99
== END 2016-12-30 20:09 | disposition home or self-care (01) ==
LOC: ED 22:47 → ERH 12-29 05:05 → 3RSO 12-29 06:37
PROVIDERS: ADMIT Hospitalist; ATTEND Internal Medicine
DX: J18.9 Pneumonia, unspecified organism (principal); C73 Malignant neoplasm of thyroid gland; E03.9 Hypothyroidism, unspecified; E11.9 Type 2 diabetes mellitus without complications; I10 Essential (primary) hypertension; Z79.899 Other long term (current) drug therapy; Z93.0 Tracheostomy status; Z87.892 Personal history of anaphylaxis; Z91.013 Allergy to seafood; Z92.21 Personal history of antineoplastic chemotherapy; Z93.1 Gastrostomy status; Y95 Nosocomial condition; B96.5 Pseudomonas (aeruginosa) (mallei) (pseudomallei) as the cause of diseases classified elsewhere
CPT/HCPCS: 36415; 71010; 71275; 80053; 81003; 82550; 82803; 82948; 83615; 83690; 83735; 83880; 84100; 84145; 84439; 84443; 84484; 85025; 85378; 85610; 85730; 87040; 87070; 87086; 87449; 93005; 94640; 99285; G0378; J0456; J0692; J1650; J7040; Q9967

== ENCOUNTER 2017-06-24 06:35 | Emergency (ER) | payer MEDICAID ==
[2017-06-24 06:40] VITALS: BMI 18.6
[2017-06-24 07:17] VITALS: BP 114/40; PULSE 102; RESP 19; TEMP 98; O2SAT 95
--- NOTE | 2017-06-24 07:42 | ED PDOC ---
Arrival/HPI - General Historian: Patient, Family - History of Present Illness Time/Duration: 24 hours Symptom Onset: Sudden Activities at Onset: Rest, Light Context: Home <Glenn Romano - Last Filed: 06/24/17 09:50> <AdarshMir L - Last Filed: 06/24/17 10:30> - General Chief Complaint: GI Problem Time Seen by Provider: 06/24/17 07:15 - History of Present Illness Narrative History of Present Illness (Text): 06/24/17 07:34 Mrs. 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 Patient is accompanied by her daughter. Patient reports that overnight her PEG tube became dislodged and she believes this is most likely due to her chronic cough. She reports that this has happened before in the past on multiple occasions. She does not recall the surgeon who placed the PEG tube initially. Per chart review, Dr. Hickey placed a PEG tube in patient in 2014. Patient denies any fever, chills, headache , changes in her vision, chest pain, palpitations, SOB, wheezing, abdominal pain , N/V/D/C, burning/pain with urination, rashes, redness/swelling/discharge surrounding PEG tube insertion site, or any numbness/tingling/weakness of any extremity. (Glenn Romano) Past Medical History - Provider Review Nursing Documentation Reviewed: Yes - Travel History Have you recently traveled outside [place] w/in the past 3 mons?: No - Past History Past History: No Previous - Infectious Disease Hx of Infectious Diseases: None - Tetanus Immunization Tetanus Immunization: Unknown - Cardiac Hx Hypertension: Yes - Pulmonary Other/Comment: Tracheostomy present - Neurological Hx Neurological Disorder: No Hx Alzheimer's Disease: No HX Cerebrovascular Accident: No Hx Dementia: No Hx Dizziness: No Hx Meningitis: No Hx Migraine: No Hx Parkinson's Disease: No Hx Seizures: No Hx Transient Ischemic Attacks (TIA): No - HEENT Hx HEENT Disorder: No Hx Blind: No Hx Cataracts: No Hx Deafness: No Hx Difficulty Chewing: No Hx Epistaxis: No Hx Glaucoma: No Hx Macular Degeneration: No - Renal Hx Renal Disorder: No Hx Dialysis: No Hx Kidney Stones: No Hx Neurogenic Bladder: No Hx Pyelonephritis: No Hx Renal Cancer: No Hx Renal Failure: No - Endocrine/Metabolic Other/Comment: Thyroid CA - Hematological/Oncological Hx Blood Disorders: No Hx AIDS: No Hx Anemia: No Hx Cancer: Yes Hx Chemotherapy: Yes Hx Cirrhosis: No Hx Hemophilia: No Hx Hepatitis A: No Hx Hepatitis B: No Hx Hepatitis C: No Hx Metastasis: No Hx Shingles: No Hx Sickle Cell Disease: No Hx Unexplained Bleeding: No - Integumentary Hx Dermatological Disorder: No Hx Basal Cell Carcinoma: No Hx Eczema: No Hx Melanoma: No Hx Psoriasis: No Hx Squamous Cell Carcinoma: No - Musculoskeletal/Rheumatological Hx Musculoskeletal Disorders: No Hx Arthritis: No Hx Degenerative Joint Disease: No Hx Falls: No Hx Gout: No Hx Herniated Disk: No Hx Myasthenia Gravis: No Hx Osteoarthritis: No Hx Osteomyelitis: No Hx Osteoporosis: No Hx Rhabdomyolysis: No Hx Spinal Stenosis: No Hx Unsteady Gait: No - Gastrointestinal Other/Comment: PEG tube present. - Genitourinary/Gynecological Hx Genitourinary Disorders: No Hx Hematuria: No Hx Incontinence: No Hx Sexually Transmitted Diseases: No - Psychiatric Hx Psychophysiologic Disorder: No Hx Anxiety: No Hx Bipolar Disorder: No Hx Depression: No Hx Emotional Abuse: No Hx Hallucinations: No Hx Panic Disorder: No Hx Post Traumatic Stress Disorder: No Hx Psychosis: No Hx Physical Abuse: No Hx Schizophrenia: No Hx Sexual Abuse: No Hx Substance Use: No - Surgical History Other/Comment: 3 thyroid sx, trach placement and peg tube - Anesthesia Hx Anesthesia: Yes - Suicidal Assessment Feels Threatened In Home Enviroment: No <Glenn Romano - Last Filed: 06/24/17 09:50> Family/Social History - Physician Review Nursing Documentation Reviewed: Yes Family/Social History: No Known Family HX Smoking Status: Unknown If Ever Smoked Hx Alcohol Use: No Hx Substance Use: No <Glenn Romano - Last Filed: 06/24/17 09:50> Allergies/Home Meds <Glenn Romano - Last Filed: 06/24/17 09:50> <Mir Altamirano - Last Filed: 06/24/17 10:30> Allergies/Adverse Reactions: Allergies shellfish derived Allergy (Verified 12/28/16 23:20) ANAPHYLAXIS Home Medications: Home Meds Medication Instructions Recorded Confirmed Levothyroxine [Synthroid] 88 mcg PO DAILY 09/05/15 06/24/17 Metformin ER [Glucophage XR] 500 mg PO BID 09/05/15 06/24/17 Rosuvastatin Calcium [Crestor] 10 mg PO DAILY 09/05/15 06/24/17 SITagliptin [Januvia] 100 mg PO DAILY 09/05/15 06/24/17 amLODIPine [Norvasc] 10 mg PO DAILY 09/05/15 06/24/17 Losartan [Cozaar] 25 mg PO DAILY 12/28/16 06/24/17 Review of Systems - Physician Review All systems were reviewed & negative as marked: Yes - Review of Systems Constitutional: Normal. absent: Fevers, Night Sweats Eyes: Normal. absent: Vision Changes ENT: Normal Respiratory: Cough (Noted to be chronic). absent: Normal, SOB Cardiovascular: Normal. absent: Chest Pain, Palpitations Gastrointestinal: Normal. absent: Abdominal Pain, Constipation, Diarrhea, Nausea, Vomiting Genitourinary Female: Normal. absent: Dysuria Musculoskeletal: Normal. absent: Back Pain, Neck Pain Skin: Normal. absent: Rash, Abscess, Cellulitis Neurological: Normal. absent: Headache Endocrine: Normal Hemo/Lymphatic: Normal Psychiatric: Normal <Glenn Romano - Last Filed: 06/24/17 09:50> Physical Exam Vital Signs Reviewed: Yes Temperature: Afebrile Blood Pressure: Normal Pulse: Tachycardic Respiratory Rate: Normal Appearance: Positive for: Well-Appearing, Non-Toxic, Comfortable Pain Distress: None Mental Status: Positive for: Alert and Oriented X 3 - Systems Exam Head: Present: Atraumatic, Normocephalic Pupils: Present: PERRL Extroacular Muscles: Present: EOMI Conjunctiva: Present: Normal Mouth: Present: Moist Mucous Membranes Pharnyx: Present: Normal. No: ERYTHEMA, EXUDATE, TONSILS ENLARGED Neck: Present: Normal Range of Motion, Trachea Midline, Other (Tracheostomy tube ). No: Meningeal Signs, MIDLINE TENDERNESS, Paraspinal Tenderness, JVD, Lymphadenopathy Respiratory/Chest: Present: Clear to Auscultation, Good Air Exchange. No: Respiratory Distress, Accessory Muscle Use, Wheezes, Decreased Breath Sounds, Rales, Retracting, Rhonchi, Tachypneic, Tender to Palpation Cardiovascular: Present: Regular Rate and Rhythm, Normal S1, S2, Peripheal Pulses Present. No: Murmurs, Irregular Rhythm, Tachycardic, Bradycardic Abdomen: Present: Normal Bowel Sounds, Other (PEG tube insertion site without erythema, discharge, or any areas of underlying fluctuance). No: Tenderness, Distention, Peritoneal Signs, Rebound, Guarding, McBurney's Point Tender, Hernias, Feeding Tubes, Ostomy Tubes, Mass/Organomegaly Back: Present: Normal Inspection. No: CVA Tenderness, Midline Tenderness, Paraspinal Tenderness Upper Extremity: Present: Normal Inspection. No: Cyanosis, Edema Lower Extremity: Present: Normal Inspection. No: Edema Neurological: Present: GCS=15, CN II-XII Intact, Speech Normal Skin: Present: Warm, Dry, Normal Color. No: Rashes, Abscess Lymphatic: No: Cervical Adenopathy Psychiatric: Present: Alert, Oriented x 3, Normal Insight, Normal Concentration <Glenn Romano - Last Filed: 06/24/17 09:50> Vital Signs Temp Pulse Resp BP Pulse Ox 06/24/17 07:16 98 F 102 H 19 114/40 L 95 06/24/17 06:45 98.1 F 108 H 16 133/76 96 Medical Decision Making <Glenn Romano - Last Filed: 06/24/17 09:50> <Mir Altamirano - Last Filed: 06/24/17 10:30> ED Course and Treatment: 06/24/17 07:45 Impression: 71 year old female with a past medical history significant for diabetes, hypertension, papillary thyroid carcinoma, hypothyroidism, tracheostomy, and 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 Prior to insertion balloon was checked and working properly. There were no complications and it was flushed appropriately. Patient was instructed to follow up with GI doctor or Dr. Hickey and return if any complications occur. 06/24/17 09:40 In agreement with resident note, which includes further HPI details. Patient was seen and evaluated with resident, came up with plan and treatment together. (Mir Altamirano) <Glenn Romano - Last Filed: 06/24/17 09:50> - PA / ELECTRICAL ASSEMBLIES SUPERVISOR / Resident Statement MD/DO has reviewed & agrees with the documentation as recorded. MD/DO has examined the patient and agrees with the treatment plan. - Scribe Statement The provider has reviewed the documentation as recorded by the Scribe <Mir Altamirano - Last Filed: 06/24/17 10:30> - Scribe Statement Jazmin Zurita Provider Scribe Attestation: All medical record entries made by the Scribe were at my direction and personally dictated by me. I have reviewed the chart and agree that the record accurately reflects my personal performance of the history, physical exam, medical decision making, and the department course for this patient. I have also personally directed, reviewed, and agree with the discharge instructions and disposition. (Mir Altamirano) Disposition/Present on Arrival - Present on Arrival Any Indicators Present on Arrival: No History of DVT/PE: No History of Uncontrolled Diabetes: Yes Urinary Catheter: No History of Decub. Ulcer: No History Surgical Site Infection Following: None - Disposition Have Diagnosis and Disposition been Completed?: Yes Disposition Time: 08:09 Patient Plan: Discharge <Glenn Romano - Last Filed: 06/24/17 09:50> <Mir Altamirano - Last Filed: 06/24/17 10:30> - Disposition Diagnosis: PEG tube malfunction Disposition: HOME/ ROUTINE Condition: IMPROVED Discharge Instructions (ExitCare): Percutaneous Endoscopic Gastrostomy Insertion (GEN), How to Use and Care for Your PEG Tube (ED) Additional Instructions: Ms Araya, thank you for letting us take care of you today. Your provider was Dr. Altamirano. You were treated for PEG Tube Dislodgement. The emergency medical care you received today was directed at your acute symptoms. If you were prescribed any medication, please fill it and take as directed. It may take several days for your symptoms to resolve. Return to the Emergency Department if your symptoms worsen, do not improve, or if you have any other problems. Please contact your doctor or call one of the physicians/clinics you have been referred to that are listed on the Patient Visit Information form that is included in your discharge packet. Bring any paperwork you were given at discharge with you along with any medications you are taking to your follow up visit. Our treatment cannot replace ongoing medical care by a primary care provider (PCP) outside of the emergency department. Thank you for allowing the [facility] team to be part of your care today. If you had an X-Ray or CT scan: A Radiologist will review the ED reading if any change in treatment is needed we will contact you. If you had a blood, urine, or wound culture: It will take several days for the results, if any change in treatment is needed we will contact you. If you had an STI test: It will take 48 hours for the results. Please call after 1 week if you have not heard back. Referrals: Oswaldo Hickey MD [Staff Provider] - Follow up with primary Forms: [employer] (Luxembourgish)
== END 2017-06-24 08:37 | disposition home or self-care (01) ==
LOC: ED 06:35
DX: K94.23 Gastrostomy malfunction (principal); E11.9 Type 2 diabetes mellitus without complications; I10 Essential (primary) hypertension; E03.9 Hypothyroidism, unspecified

== ENCOUNTER 2017-06-24 10:57 | Emergency (ER) | payer MEDICAID ==
[2017-06-24 10:57] VITALS: BMI 18.6
[2017-06-24 11:11] VITALS: PULSE 104; RESP 19; TEMP 98; O2SAT 99
[2017-06-24 11:24] VITALS: BP 140/70
[2017-06-24] MEDS ORDERED: Iodixanol 320 MG/ML 100 ML BOTTLE IV ONE (11:27)
--- NOTE | 2017-06-24 11:33 | ED PDOC ---
Arrival/HPI - General Historian: Patient, Family - History of Present Illness Time/Duration: 1 hour Symptom Onset: Sudden Activities at Onset: Rest, Light, Eating Context: Home <Glenn Romano - Last Filed: 06/24/17 13:04> <AdarshMir L - Last Filed: 06/24/17 14:53> - General Chief Complaint: Abdominal Pain Time Seen by Provider: 06/24/17 11:01 - History of Present Illness Narrative History of Present Illness (Text): 06/24/17 11:29 Mrs. 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 Patient states that after she left the [facility] ED this AM, she put one can of tube feeds through the tube with no complications but afterwards put water and liquid medication through the tube and it began leaking through the ostomy opening. She also reports that she experiences leaking whenever she coughs or talks. Per chart review, Dr. Hickey placed a PEG tube in patient in 2014. Patient denies any fever, chills, headache, changes in her vision, chest pain, palpitations, SOB, wheezing, abdominal pain, N/V/D/C, burning/pain with urination, rashes, redness/swelling/discharge surrounding PEG tube insertion site, or any numbness/tingling/weakness of any extremity. (Glenn Romano) Past Medical History - Provider Review Nursing Documentation Reviewed: Yes - Travel History Have you recently traveled outside [place] w/in the past 3 mons?: No - Past History Past History: No Previous - Infectious Disease Hx of Infectious Diseases: None - Tetanus Immunization Tetanus Immunization: Unknown - Cardiac Hx Hypertension: Yes - Pulmonary Other/Comment: Tracheostomy present - Neurological Hx Neurological Disorder: No Hx Alzheimer's Disease: No HX Cerebrovascular Accident: No Hx Dementia: No Hx Dizziness: No Hx Meningitis: No Hx Migraine: No Hx Parkinson's Disease: No Hx Seizures: No Hx Transient Ischemic Attacks (TIA): No - HEENT Hx HEENT Disorder: No Hx Blind: No Hx Cataracts: No Hx Deafness: No Hx Difficulty Chewing: No Hx Epistaxis: No Hx Glaucoma: No Hx Macular Degeneration: No - Renal Hx Renal Disorder: No Hx Dialysis: No Hx Kidney Stones: No Hx Neurogenic Bladder: No Hx Pyelonephritis: No Hx Renal Cancer: No Hx Renal Failure: No - Endocrine/Metabolic Other/Comment: Thyroid CA - Hematological/Oncological Hx Blood Disorders: No Hx AIDS: No Hx Anemia: No Hx Cancer: Yes Hx Chemotherapy: Yes Hx Cirrhosis: No Hx Hemophilia: No Hx Hepatitis A: No Hx Hepatitis B: No Hx Hepatitis C: No Hx Metastasis: No Hx Shingles: No Hx Sickle Cell Disease: No Hx Unexplained Bleeding: No - Integumentary Hx Dermatological Disorder: No Hx Basal Cell Carcinoma: No Hx Eczema: No Hx Melanoma: No Hx Psoriasis: No Hx Squamous Cell Carcinoma: No - Musculoskeletal/Rheumatological Hx Musculoskeletal Disorders: No Hx Arthritis: No Hx Degenerative Joint Disease: No Hx Falls: No Hx Gout: No Hx Herniated Disk: No Hx Myasthenia Gravis: No Hx Osteoarthritis: No Hx Osteomyelitis: No Hx Osteoporosis: No Hx Rhabdomyolysis: No Hx Spinal Stenosis: No Hx Unsteady Gait: No - Gastrointestinal Other/Comment: PEG tube present. - Genitourinary/Gynecological Hx Genitourinary Disorders: No Hx Hematuria: No Hx Incontinence: No Hx Sexually Transmitted Diseases: No - Psychiatric Hx Psychophysiologic Disorder: No Hx Anxiety: No Hx Bipolar Disorder: No Hx Depression: No Hx Emotional Abuse: No Hx Hallucinations: No Hx Panic Disorder: No Hx Post Traumatic Stress Disorder: No Hx Psychosis: No Hx Physical Abuse: No Hx Schizophrenia: No Hx Sexual Abuse: No Hx Substance Use: No - Surgical History Other/Comment: 3 thyroid sx, trach placement and peg tube - Anesthesia Hx Anesthesia: Yes - Suicidal Assessment Feels Threatened In Home Enviroment: No <Glenn Romano - Last Filed: 06/24/17 13:04> Family/Social History - Physician Review Nursing Documentation Reviewed: Yes Family/Social History: No Known Family HX Smoking Status: Unknown If Ever Smoked Hx Alcohol Use: No Hx Substance Use: No <Glenn Romano - Last Filed: 06/24/17 13:04> Allergies/Home Meds <Glenn Romano - Last Filed: 06/24/17 13:04> <Mir Altamirano - Last Filed: 06/24/17 14:53> Allergies/Adverse Reactions: Allergies shellfish derived Allergy (Verified 12/28/16 23:20) ANAPHYLAXIS Home Medications: Home Meds Medication Instructions Recorded Confirmed Levothyroxine [Synthroid] 88 mcg PO DAILY 09/05/15 06/24/17 Metformin ER [Glucophage XR] 500 mg PO BID 09/05/15 06/24/17 Rosuvastatin Calcium [Crestor] 10 mg PO DAILY 09/05/15 06/24/17 SITagliptin [Januvia] 100 mg PO DAILY 09/05/15 06/24/17 amLODIPine [Norvasc] 10 mg PO DAILY 09/05/15 06/24/17 Losartan [Cozaar] 25 mg PO DAILY 12/28/16 06/24/17 Review of Systems - Physician Review All systems were reviewed & negative as marked: Yes - Review of Systems Constitutional: Normal. absent: Fevers, Night Sweats Eyes: Normal. absent: Vision Changes ENT: Normal Respiratory: Normal. absent: SOB, Cough Cardiovascular: Normal. absent: Chest Pain, Palpitations Gastrointestinal: Other (Leaking through PEG tube insertion site). absent: Normal, Abdominal Pain, Constipation, Diarrhea, Nausea, Vomiting Genitourinary Female: Normal. absent: Dysuria Musculoskeletal: Normal. absent: Back Pain, Neck Pain Skin: Normal. absent: Rash Neurological: Normal. absent: Headache Endocrine: Normal Hemo/Lymphatic: Normal Psychiatric: Normal <Glenn Romano - Last Filed: 06/24/17 13:04> Physical Exam Vital Signs Reviewed: Yes Temperature: Afebrile Blood Pressure: Normal Pulse: Regular Respiratory Rate: Normal Appearance: Positive for: Well-Appearing, Non-Toxic, Comfortable Pain Distress: None Mental Status: Positive for: Alert and Oriented X 3 - Systems Exam Head: Present: Atraumatic, Normocephalic Pupils: Present: PERRL Extroacular Muscles: Present: EOMI Conjunctiva: Present: Normal Mouth: Present: Moist Mucous Membranes Neck: Present: Normal Range of Motion Respiratory/Chest: Present: Clear to Auscultation, Good Air Exchange. No: Respiratory Distress, Accessory Muscle Use Cardiovascular: Present: Regular Rate and Rhythm, Normal S1, S2. No: Murmurs Abdomen: Present: Normal Bowel Sounds, Ostomy Tubes (PEG tube insertion site with fluid leakage). No: Tenderness, Distention, Peritoneal Signs, Rebound, Guarding, Feeding Tubes Back: Present: Normal Inspection. No: CVA Tenderness, Midline Tenderness, Paraspinal Tenderness, Pain with Leg Raise Upper Extremity: Present: Normal Inspection. No: Cyanosis, Edema Lower Extremity: Present: Normal Inspection. No: Edema Neurological: Present: GCS=15, CN II-XII Intact, Speech Normal Skin: Present: Warm, Dry, Normal Color. No: Rashes Lymphatic: No: Cervical Adenopathy Psychiatric: Present: Alert, Oriented x 3, Normal Insight, Normal Concentration <Glenn Romano - Last Filed: 06/24/17 13:04> Vital Signs Temp Pulse Resp BP Pulse Ox 06/24/17 11:06 98 F 104 H 19 140/70 99 Medical Decision Making <Glenn Romano - Last Filed: 06/24/17 13:04> - RAD Interpretation Salesperson Men'[employer] Furnishings: Radiologist <Mir Altamirano - Last Filed: 06/24/17 14:53> ED Course and Treatment: 06/24/17 11:35 Impression: 71 year old female with a past medical history significant for diabetes, hypertension, papillary thyroid carcinoma, hypothyroidism, tracheostomy, and 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 Plan: -Abdominal X-Ray with gastrografin for PEG placement -Surgical evaluation of PEG placement -Reassess and disposition Prior Visits: Patient seen and evaluated for PEG tube malfunction on 06/24/17 06/24/17 12:33 Patient and PEG tube placement evaluated by residential sales consultant, Hector Barney, who made finer adjustments to PEG tube to limit any further leaking. Patient is aware that she should still follow up with GI for further evaluation and to return to the ED should she encounter any further complications until GI follow up is obtained. Patient educated on use of PEG tube and tube feeding done in ED with no complications or further leaking. (Glenn Romano) 06/24/17 In agreement with resident note, which includes further HPI details. Patient was seen and evaluated with resident, came up with plan and treatment together. ABDOMINAL XRAY with gastrograffin Patient Name / ID : LEIGHA FORMANZ / [id number] IMPRESSION: In situ PEG tube, the tip of which terminates over the left parasagittal mid abdomen. PEG tube on lumen is opacified as is the lumen of the stomach. No evidence of contrast extravasation. (Mir Altamirano) - RAD Interpretation Radiology Orders: 06/24/17 11:23 ABDOMEN (FLAT PLATE) 1VIEW [RAD] Stat <Glenn Romano - Last Filed: 06/24/17 13:04> - PA / DEVELOPER RELATIONS MANAGER / Resident Statement MD/DO has reviewed & agrees with the documentation as recorded. MD/DO has examined the patient and agrees with the treatment plan. - Scribe Statement The provider has reviewed the documentation as recorded by the Scribe <Mir Altamirano - Last Filed: 06/24/17 14:53> - Scribe Statement Jazmin Boycedua Provider Scribe Attestation: All medical record entries made by the Scribe were at my direction and personally dictated by me. I have reviewed the chart and agree that the record accurately reflects my personal performance of the history, physical exam, medical decision making, and the department course for this patient. I have also personally directed, reviewed, and agree with the discharge instructions and disposition. (Mir Altamirano) Disposition/Present on Arrival - Present on Arrival Any Indicators Present on Arrival: No History of DVT/PE: No History of Uncontrolled Diabetes: Yes Urinary Catheter: No History of Decub. Ulcer: No History Surgical Site Infection Following: None - Disposition Have Diagnosis and Disposition been Completed?: Yes Disposition Time: 12:36 Patient Plan: Discharge <Glenn Romano - Last Filed: 06/24/17 13:04> <Mir Altamirano - Last Filed: 06/24/17 14:53> - Disposition Diagnosis: PEG tube malfunction Disposition: HOME/ ROUTINE Condition: GOOD Discharge Instructions (ExitCare): How to Use and Care for Your PEG Tube (ED) Additional Instructions: Mrs. Araya, thank you for letting us take care of you today. Your provider was Dr. Altamirano. You were treated for PEG tube malfunction. The emergency medical care you received today was directed at your acute symptoms. If you were prescribed any medication, please fill it and take as directed. It may take several days for your symptoms to resolve. Return to the Emergency Department if your symptoms worsen, do not improve, or if you have any other problems. Please contact your doctor or call one of the physicians/clinics you have been referred to that are listed on the Patient Visit Information form that is included in your discharge packet. Bring any paperwork you were given at discharge with you along with any medications you are taking to your follow up visit. Our treatment cannot replace ongoing medical care by a primary care provider (PCP) outside of the emergency department. PLEASE FOLLOW UP WITH YOUR PRIMARY CARE DOCTOR AND GI WITHIN ONE WEEK Thank you for allowing the [facility] team to be part of your care today. If you had an X-Ray or CT scan: A Radiologist will review the ED reading if any change in treatment is needed we will contact you. Referrals: Donya Morris MD [Primary Care Provider] - Follow up with primary Oswaldo Hickey MD [Staff Provider] - Follow up with primary Forms: [employer] (Faroese)
--- NOTE | 2017-06-24 12:37 | RAD ---
HISTORY: Peg tube re- insertion. Assess placement. COMPARISON: No prior study available for comparison the FINDINGS: In situ PEG tube, the tip of which terminates over the left parasagittal mid abdomen. PEG tube on lumen is opacified as is the lumen of the stomach. No evidence of contrast extravasation. IMPRESSION: In situ PEG tube, the tip of which terminates over the left parasagittal mid abdomen. PEG tube on lumen is opacified as is the lumen of the stomach. No evidence of contrast extravasation.
== END 2017-06-24 13:08 | disposition home or self-care (01) ==
LOC: ED 10:57
DX: K94.23 Gastrostomy malfunction (principal); Y84.8 Other medical procedures as the cause of abnormal reaction of the patient, or of later complication, without mention of misadventure at the time of the procedure; I10 Essential (primary) hypertension; E03.9 Hypothyroidism, unspecified; E11.9 Type 2 diabetes mellitus without complications; Z79.84 Long term (current) use of oral hypoglycemic drugs; Z85.850 Personal history of malignant neoplasm of thyroid
CPT/HCPCS: 74000; 99283; Q9967

== ENCOUNTER 2017-08-23 10:17 | Inpatient (IN) | payer MEDICAID ==
--- NOTE | 2017-08-23 11:05 | ED PDOC ---
Arrival/HPI - General Historian: Patient - History of Present Illness Time/Duration: Prior to Arrival Symptom Onset: Sudden Symptom Course: Worsening - General Chief Complaint: Cough, Cold, Congestion Time Seen by Provider: 08/23/17 10:56 - History of Present Illness Narrative History of Present Illness (Text): CC: Cough, chills 71F presents with cough for 2 days, with fever (39C 102.2F) and chills at home. Patient took tylenol this morning. Patient admits to leg pain bilaterally characterized as sore Patient admits to fever, chills, shortness of breath, phlegm, productive cough, leg aches Patient denies nausea, vomiting, diarrhea, weakness, numbness, tingling DM, HTN, thyroid cancer, COPD Tracheostomy placement 01/2014 G tube placement 02/2014 due to dehydration and difficulty eating (Sonia Gr) Past Medical History - Past History Past History: No Previous - Infectious Disease Hx of Infectious Diseases: None - Tetanus Immunization Tetanus Immunization: Unknown - Reproductive Menopause: Yes - Cardiac Hx Hypertension: Yes - Pulmonary Other/Comment: Tracheostomy present - Neurological Hx Neurological Disorder: No Hx Alzheimer's Disease: No HX Cerebrovascular Accident: No Hx Dementia: No Hx Dizziness: No Hx Meningitis: No Hx Migraine: No Hx Parkinson's Disease: No Hx Seizures: No Hx Transient Ischemic Attacks (TIA): No - HEENT Hx HEENT Disorder: No Hx Blind: No Hx Cataracts: No Hx Deafness: No Hx Difficulty Chewing: No Hx Epistaxis: No Hx Glaucoma: No Hx Macular Degeneration: No - Renal Hx Renal Disorder: No Hx Dialysis: No Hx Kidney Stones: No Hx Neurogenic Bladder: No Hx Pyelonephritis: No Hx Renal Cancer: No Hx Renal Failure: No - Endocrine/Metabolic Other/Comment: Thyroid CA - Hematological/Oncological Hx Blood Disorders: No Hx AIDS: No Hx Anemia: No Hx Cancer: Yes Hx Chemotherapy: Yes Hx Cirrhosis: No Hx Hemophilia: No Hx Hepatitis A: No Hx Hepatitis B: No Hx Hepatitis C: No Hx Metastasis: No Hx Shingles: No Hx Sickle Cell Disease: No Hx Unexplained Bleeding: No - Integumentary Hx Dermatological Disorder: No Hx Basal Cell Carcinoma: No Hx Eczema: No Hx Melanoma: No Hx Psoriasis: No Hx Squamous Cell Carcinoma: No - Musculoskeletal/Rheumatological Hx Musculoskeletal Disorders: No Hx Arthritis: No Hx Degenerative Joint Disease: No Hx Falls: No Hx Gout: No Hx Herniated Disk: No Hx Myasthenia Gravis: No Hx Osteoarthritis: No Hx Osteomyelitis: No Hx Osteoporosis: No Hx Rhabdomyolysis: No Hx Spinal Stenosis: No Hx Unsteady Gait: No - Gastrointestinal Other/Comment: PEG tube present. - Genitourinary/Gynecological Hx Genitourinary Disorders: No Hx Hematuria: No Hx Incontinence: No Hx Sexually Transmitted Diseases: No - Psychiatric Hx Psychophysiologic Disorder: No Hx Anxiety: No Hx Bipolar Disorder: No Hx Depression: No Hx Emotional Abuse: No Hx Hallucinations: No Hx Panic Disorder: No Hx Post Traumatic Stress Disorder: No Hx Psychosis: No Hx Physical Abuse: No Hx Schizophrenia: No Hx Sexual Abuse: No Hx Substance Use: No - Surgical History Other/Comment: 3 thyroid sx, trach placement and peg tube, thyroid ca - Anesthesia Hx Anesthesia: Yes - Suicidal Assessment Feels Threatened In Home Enviroment: No Family/Social History Family/Social History: Unknown Family HX Smoking Status: Unknown If Ever Smoked Hx Alcohol Use: No Hx Substance Use: No Allergies/Home Meds Allergies/Adverse Reactions: Allergies shellfish derived Allergy (Verified 08/23/17 18:40) ANAPHYLAXIS Home Medications: Home Meds Medication Instructions Recorded Confirmed Levothyroxine [Synthroid] 88 mcg PO DAILY 09/05/15 08/23/17 Metformin ER [Glucophage XR] 500 mg PO BID 09/05/15 08/23/17 Rosuvastatin Calcium [Crestor] 10 mg PO DAILY 09/05/15 08/23/17 SITagliptin [Januvia] 100 mg PO DAILY 09/05/15 08/23/17 amLODIPine [Norvasc] 10 mg PO DAILY 09/05/15 08/23/17 Losartan [Cozaar] 25 mg PO DAILY 12/28/16 08/23/17 Acetaminophen [Mapap] 5 ml PO PRN PRN 08/23/17 08/23/17 Glimepiride [Amaryl] 5 mg PO DAILY 08/23/17 08/23/17 Lisinopril [Zestril] 20 mg PO DAILY 08/23/17 08/23/17 Multivit-Min/FA/Lycopen/Lutein 1 each PO DAILY 08/23/17 08/23/17 [Centrum Silver Tablet] Review of Systems - Review of Systems Systems not reviewed;Unavailable: Acuity of Condition Constitutional: Normal. absent: Fatigue, Weight Change Eyes: Normal. absent: Vision Changes, Photophobia, Eye Pain ENT: Normal. absent: Hearing Changes, Tinnitus, TMJ Pain Respiratory: Normal. absent: SOB, Cough, Sputum, Wheezing Cardiovascular: absent: Chest Pain, Palpitations, Edema Gastrointestinal: absent: Abdominal Pain, Stool Changes, Nausea, Vomiting Musculoskeletal: Arthralgias (bilateral leg arthralgia). absent: Back Pain, Neck Pain, Joint Swelling Skin: Normal. absent: Rash, Pruritis, Skin Lesions Neurological: Normal. absent: Headache, Dizziness, Focal Weakness Endocrine: absent: Diaphoresis, Polyuria, Polydipsia Hemo/Lymphatic: absent: Adenopathy, Easy Bleeding, Easy Bruising Psychiatric: absent: Anxiety, Depression, Suicidal Ideation Physical Exam Vital Signs Reviewed: Yes Temperature: Febrile Blood Pressure: Normal Pulse: Tachycardic Respiratory Rate: Normal Appearance: Positive for: Well-Appearing, Non-Toxic, Comfortable Mental Status: Positive for: Alert and Oriented X 3 - Systems Exam Head: Present: Atraumatic, Normocephalic Pupils: Present: PERRL Extroacular Muscles: Present: EOMI Conjunctiva: Present: Normal Ears: Present: Normal, NORMAL TM, Normal Canal. No: Erythema, TM Bulging Mouth: Present: Dry, Normal Lips. No: Drooling, Trismus Pharnyx: Present: Normal. No: ERYTHEMA, EXUDATE, TONSILS ENLARGED, Peritonsilar Swelling, Uvular Deviation, Muffled/Hoarse Voice, Strider, Soft Palate/Uvular Edema Nose (External): Present: Atraumatic. No: Abrasion, Contusion, Laceration Neck: Present: Trachea Midline, Other (tracheostomy placed). No: JVD, Lymphadenopathy Respiratory/Chest: Present: Clear to Auscultation, Good Air Exchange. No: Respiratory Distress, Accessory Muscle Use Cardiovascular: Present: Regular Rate and Rhythm, Normal S1, S2. No: Murmurs Abdomen: Present: Normal Bowel Sounds, Feeding Tubes (g tube). No: Tenderness, Distention Back: Present: Normal Inspection. No: CVA Tenderness, Midline Tenderness Upper Extremity: Present: Normal Inspection, Normal ROM, NORMAL PULSES, Capillary Refill < 2s. No: Cyanosis, Edema Lower Extremity: Present: Normal Inspection, NORMAL PULSES, Normal ROM, Capillary Refill < 2 s. No: Edema, CALF TENDERNESS Neurological: Present: GCS=15, CN II-XII Intact, Speech Normal Skin: Present: Warm, Dry, Normal Color. No: Rashes Psychiatric: Present: Alert, Oriented x 3, Normal Insight, Normal Concentration , Normal Affect, Normal Mood Vital Signs Temp Pulse Resp BP Pulse Ox 08/23/17 14:52 103/68 08/23/17 14:30 96 H 18 103/68 98 08/23/17 13:56 109 H 18 112/69 98 08/23/17 12:29 97.7 F 110 H 18 114/65 99 08/23/17 11:52 107 H 18 116/69 99 08/23/17 10:39 100.6 F H 118 H 20 114/67 99 Medical Decision Making Re-evaluation Time: 11:12 Reassessment Condition: Re-examined - EKG Interpretation Type: 12 lead EKG (108 bpm, Sinus Tachycardia) ED Course and Treatment: 08/23/17 11:12 CXR Cardiac ISO EKG BNP CMP, Mg COAG PT, PTT CBC Mg Tylenol NS Influenza a/b Blood culture Duoneb Tyelenol 650mg PO STAT (Eng,Sonia) - Lab Interpretations Microbiology Results: Microbiology Results 08/23/17 11:45 Blood Blood Culture - Preliminary NO GROWTH AFTER 24 HOURS 08/23/17 11:21 Blood Blood Culture - Preliminary NO GROWTH AFTER 24 HOURS Lab Results: 08/23/17 11:20 08/23/17 11:20 Lab Results 08/23/17 11:20: pO2 83 H, VBG pH 7.43, VBG pCO2 46.0, VBG HCO3 30.5 H, VBG Total CO2 31.9 H, VBG O2 Sat (Calc) 98.6 H, VBG Base Excess 5.3 H, VBG Potassium 4.5, Sodium 133.0, Chloride 99.0, Glucose 158 H, Lactate 2.1, FiO2 21.0, Venous Blood Potassium 4.5 08/23/17 11:20: Influenza Typ A,B (EIA) Negative for flu a/b 08/23/17 11:20: Sodium 136, Chloride 97 L, Potassium 5.1 H, Carbon Dioxide 28, Anion Gap 16, BUN 22 H, Creatinine 0.7, Est GFR ( Amer) > 60, Est GFR ( Non-Af Amer) > 60, Random Glucose 150 H, Calcium 9.7, Magnesium 2.2, Total Bilirubin 0.4, AST 39 H, ALT 51, Alkaline Phosphatase 120, Lactate Dehydrogenase 617, Total Creatine Kinase 69, Troponin I < 0.01 D, NT-Pro-B Natriuret Pep 791 H, Total Protein 6.8, Albumin 4.0, Globulin 2.9, Albumin/ Globulin Ratio 1.4 08/23/17 11:20: WBC 13.2 H D, RBC 4.14, Hgb 11.2 L, Hct 35.2 L, MCV 85.0, MCH 27.1, MCHC 31.8, RDW 13.8, Plt Count 261, MPV 8.9, Gran % 91.0 H, Lymph % (Auto ) 2.3 L, Chase % (Auto) 6.4 H, Eos % (Auto) 0.1 L, Baso % (Auto) 0.2, Gran # 12.01 H, Lymph # (Auto) 0.3 L, Chase # (Auto) 0.8 H, Eos # (Auto) 0.0, Baso # ( Auto) 0.02, Neutrophils % (Manual) 89 H, Band Neutrophils % 3 H, Lymphocytes % ( Manual) 4 L, Monocytes % (Manual) 4, Platelet Evaluation Normal 08/23/17 11:07: PT 11.9, INR 1.03, APTT 27.2 leukocytosis 13.2 lactate 2.1 potassium 5.1, likely due to dehydration BNP 791 (Eng,Sonia) - RAD Interpretation Radiology Orders: 08/23/17 11:07 CHEST PORTABLE [RAD] Stat - Medication Orders Current Medication Orders: Acetaminophen (Tylenol 325mg Tab) 650 mg PO Q6H PRN PRN Reason: Fever >100.4 F Albuterol/Ipratropium (Duoneb 3 Mg/0.5 Mg (3 Ml) Ud) 3 ml IH [id number] [facility] Last Admin: 08/24/17 11:37 Dose: 3 ml Albuterol/Ipratropium (Duoneb 3 Mg/0.5 Mg (3 Ml) Ud) 3 ml IH Q2H PRN PRN Reason: Shortness of Breath Amlodipine Besylate (Norvasc) 10 mg PO DAILY [facility] Atorvastatin Calcium (Lipitor) 40 mg PO DAILY [facility] Last Admin: 08/24/17 09:00 Dose: 40 mg Benzonatate (Tessalon Perles) 100 mg PO TID PRN PRN Reason: Cough Last Admin: 08/24/17 08:59 Dose: 100 mg Heparin Sodium (Porcine) (Heparin) 5,000 units SC Q12 FERDDY PRN Reason: Protocol Last Admin: 08/24/17 08:59 Dose: 5,000 units Subcutaneous Administrations Document 08/24/17 08:59 SOUSV (Rec: 08/24/17 08:59 SOUSV [id number]) Injection Site MAR Injection Site Left Arm Charges for Administration # of Subcutaneous Administrations 1 Ceftriaxone Sodium (Rocephin 1 Gram Ivpb) 1 gm in 100 mls @ 100 mls/hr IVPB DAILY [facility] PRN Reason: Protocol Stop: 08/27/17 10:59 Last Admin: 08/24/17 09:01 Dose: 100 mls/hr eMAR Start Stop Document 08/24/17 09:01 SOUSV (Rec: 08/24/17 09:01 SOUSV [id number]) Intravenous Solution Start Date 08/24/17 Start Time 09:01 End Date 08/24/17 End time 10:01 Total Infusion Time 60 Azithromycin (Zithromax 500mg In Ns) 500 mg in 250 mls @ 167 mls/hr IVPB DAILY [facility] PRN Reason: Protocol Last Admin: 08/24/17 09:01 Dose: 167 mls/hr eMAR Start Stop Document 08/24/17 09:01 SOUSV (Rec: 08/24/17 09:01 SOUSV [id number]) Intravenous Solution Start Date 08/24/17 Start Time 09:01 End Date 08/24/17 End time 10:31 Total Infusion Time 90 Insulin Detemir (Levemir) 6 unit SC HS [facility] Last Admin: 08/23/17 21:52 Dose: 6 unit Subcutaneous Administrations Document 08/23/17 21:52 RR (Rec: 08/23/17 21:52 RR [id number]) Injection Site MAR Injection Site Right Arm Charges for Administration # of Subcutaneous Administrations 1 Insulin Human Regular (Humulin R Med) 0 units SC ACHS [facility] PRN Reason: Protocol Last Admin: 08/24/17 12:37 Dose: Not Given Non-Admin Reason: Blood Sugar Parameter [facility] Blood Glucose Document 08/24/17 12:37 SOUSV (Rec: 08/24/17 12:37 SOUV [id number]) Blood Glucose Finger Stick Blood Glucose (70-120) 119 Levothyroxine Sodium (Synthroid) 88 mcg PO DAILY [facility] Last Admin: 08/24/17 09:00 Dose: 88 mcg Losartan Potassium (Cozaar) 25 mg PO DAILY [facility] Last Admin: 08/24/17 09:00 Dose: 25 mg [facility] Pulse and Blood Pressure Document 08/24/17 09:00 [facility]SV (Rec: 08/24/17 09:00 [id number] Pulse Pulse Rate (60-90) 98 Blood Pressure Blood Pressure (100/60-150/90) 109/49 Metoclopramide HCl (Reglan) 5 mg GT AC [facility] Non-Formulary Medication (Multivit-Min/Fa/Lycopen/Lutein [Centrum Silver Tablet] ) 1 each PO DAILY [facility] Last Admin: 08/24/17 13:02 Dose: Ondansetron HCl (Zofran Inj) 4 mg IVP Q6H PRN PRN Reason: Nausea/Vomiting Last Admin: 08/24/17 09:27 Dose: 4 mg IVP Administration Document 08/24/17 09:27 SOU (Rec: 08/24/17 09:27 [id number] Charges for Administration # of IVP Administrations 1 Pantoprazole Sodium (Protonix Ec Tab) 40 mg PO DAILY [facility] Last Admin: 08/24/17 09:00 Dose: 40 mg Prednisone (Prednisone Tab) 40 mg PO DAILY [facility] Discontinued Medications Acetaminophen (Tylenol 650 Mg Supp) 650 mg STAT STA Stop: 08/23/17 11:58 Last Admin: 08/23/17 12:05 Dose: 650 mg [facility] Pain/Vitals Document 08/23/17 12:05 EQ (Rec: 08/23/17 12:15 EQ [id number]) Pain Reassessment Is This A Pain ReAssessment? No Sleep Is patient sleeping during reassessment? No Presence of Pain Presence of Pain Yes Re-Assess: [facility] Pain/Vitals Document 08/23/17 13:05 RR (Rec: 08/23/17 22:01 RR [facility] [id number]) Pain Reassessment Is This A Pain ReAssessment? Yes Sleep Is patient sleeping during reassessment? Yes Pain Scale Used Pain Scale Used [facility] Albuterol/Ipratropium (Duoneb 3 Mg/0.5 Mg (3 Ml) Ud) 3 ml IH STAT STA Stop: 08/23/17 11:10 Last Admin: 08/23/17 11:47 Dose: 3 ml Albuterol/Ipratropium (Duoneb 3 Mg/0.5 Mg (3 Ml) Ud) 3 ml IH STAT STA Stop: 08/23/17 12:30 Last Admin: 08/23/17 12:55 Dose: 3 ml Amlodipine Besylate (Norvasc) 10 mg PO DAILY [facility] Last Admin: 08/24/17 09:00 Dose: 10 mg [facility] Pulse and Blood Pressure Document 08/24/17 09:00 [facility] (Rec: 08/24/17 09:01 [id number] Pulse Pulse Rate (60-90) 98 Blood Pressure Blood Pressure (100/60-150/90) 109/49 Furosemide (Lasix) 40 mg IVP STAT STA Stop: 08/23/17 12:51 Last Admin: 08/23/17 14:52 Dose: Not Given Non-Admin Reason: BP Parameters Not Met [facility] Blood Pressure Document 08/23/17 14:52 EQ (Rec: 08/23/17 14:52 EQ [id number]) Blood Pressure Blood Pressure (100/60-150/90) 103/68 IVP Administration Document 08/23/17 14:52 EQ (Rec: 08/23/17 14:52 EQ [id number]) Charges for Administration # of IVP Administrations 1 Sodium Chloride (Sodium Chloride 0.9%) 500 mls @ 999 mls/hr IV .Q31M STA Stop: 08/23/17 11:43 Last Admin: 08/23/17 11:47 Dose: 999 mls/hr eMAR Start Stop Document 08/23/17 11:47 EQ (Rec: 08/23/17 11:47 EQ [id number]) Intravenous Solution Start Date 08/23/17 Start Time 11:47 Methylprednisolone (Solu-Medrol) 125 mg IVP STAT STA Stop: 08/23/17 12:30 Last Admin: 08/23/17 12:55 Dose: 125 mg IVP Administration Document 08/23/17 12:55 EQ (Rec: 08/23/17 12:55 EQ [id number]) Charges for Administration # of IVP Administrations 1 Methylprednisolone (Solu-Medrol) 40 mg IVP DAILY [facility] Last Admin: 08/24/17 08:59 Dose: 40 mg IVP Administration Document 08/24/17 08:59 [facility] (Rec: 08/24/17 08:59 [facility] [id number]) Charges for Administration # of IVP Administrations 1 Non-Formulary Medication (Rosuvastatin Calcium [Crestor]) 10 mg PO DAILY [facility] Disposition/Present on Arrival - Present on Arrival Any Indicators Present on Arrival: Yes History of DVT/PE: No History of Uncontrolled Diabetes: Yes Urinary Catheter: No History of Decub. Ulcer: No History Surgical Site Infection Following: None - Disposition Have Diagnosis and Disposition been Completed?: Yes Disposition Time: 13:48 Patient Plan: Admission, Telemetry - Disposition Diagnosis: Chronic obstructive airway disease, CHF (congestive heart failure) Disposition: HOSPITALIZED Patient Problems: Current Active Problems Problem Status Onset CHF (congestive heart failure) Acute Chronic obstructive airway disease Acute Condition: GUARDED
[2017-08-23] MEDS ORDERED: Albuterol-Ipratrop 3 mg / 0.5 (3 ml) UD IH STA ×2 (11:09→12:29)
[2017-08-23] MEDS ORDERED: Sodium Chloride 0.9% 500 ML IV STA (11:13)
[2017-08-23 11:53] LABS: BASO # 0.02 K/mm3 (0.0-2.0); BASO % 0.2 % (0.0-3.0); EOS % 0.1 % (1.5-5.0); GRAN # 12.01 (1.4-6.5); HEMOGLOBIN 11.2 g/dL (12.0-16.0); LYMPH # 0.3 (1.2-3.4); LYMPH % 2.3 % (22.0-35.0); MEAN CORPUSCULAR HEMOGLOBIN 27.1 pg (25.0-35.0); MEAN CORPUSCULAR HGB CONC 31.8 g/dl (31.0-37.0); MEAN PLATELET VOLUME 8.9 fl (7.0-11.0); MONO # 0.8 (0.1-0.6); MONO % 6.4 % (1.0-6.0); PLATELET COUNT 261 10^3/uL (120.0-450.0); RBC 4.14 10^6/uL (3.5-6.1); RED CELL DISTRIBUTION WIDTH 13.8 % (11.5-14.5); WHITE BLOOD COUNT 13.2 10^3/ul (4.5-11.0)
[2017-08-23 11:55] LABS: VENOUS BLOOD GAS BASE EXCESS 5.3 mmol/L (0.0-2.0); VENOUS BLOOD GAS PO2 83 mm/Hg (30-55); VENOUS BLOOD PH 7.43 (7.32-7.43)
[2017-08-23 12:05] LABS: INR 1.03 (0.93-1.08); PARTIAL THROMBOPLASTIN TIME 27.2 Seconds (25.1-36.5); PROTHROMBIN TIME 11.9 SECONDS (9.4-12.5)
[2017-08-23 12:09] LABS: ALB/GLOB RATIO 1.4 (1.1-1.8); ALT/SGPT 51 U/L (7-56); AST/SGOT 39 U/L (14-36); BLOOD UREA NITROGEN 22 mg/dL (7-21); CALCIUM 9.7 mg/dL (8.4-10.5); GFR AFRICAN-AMERICAN > 60; GFR NON-AFRICAN AMERICAN > 60; MAGNESIUM 2.2 mg/dL (1.7-2.2)
[2017-08-23 12:14] LABS: B-TYPE NATRIURETIC PEPTIDE 791 pg/mL (0-450); TROPONIN I < 0.01 ng/mL
--- NOTE | 2017-08-23 13:33 | CP.PCM.HP ---
<Nellie Frye - Last Filed: 08/23/17 14:32> History of Present Illness - History of Present Illness History of Present Illness: Patient is a 71F with PMH of DM, HTN, papillary thyroid cancer, hypothyroidism, pneumonia, and COPD who presents to the ED complaining of cough, fever, and chills for 2 days duration. Patient says the cough is productive of yellow phlegm. She took her temperature at home last night and it was 99.0 F. She took robitussin for her cough this morning which helped. She also complains of associated b/l leg pain that she describes as "sore" all over, as well as chest tightness, sore throat when she coughs, and runny nose. She denies headache, dizziness, chest pain, SOB, palpitations, abdominal pain, nausea, vomiting, diarrhea, constipation, changes in urination/dysuria, and leg swelling. In the ED patient had a fever of 100.6 but decreased to 97.7 with a dose of tylenol. EKG showed sinus tachycardia at 108 bpm. Flu was negative. PMD: Dr. Morris Oncologist: Dr. Posada PMH: DM, HTN, papillary thyroid cancer, hypothyroidism, pneumonia, COPD, pneumonia (last admission December 2016) Meds: please see [facility], pharmacy [facility] on [facility] in [place] Allergies: shellfish PSH: trach (01/2014), G tube (02/2014) both 2/2 radiation damage from CA treatment FH: brother with GI cancer, mother with asthma SH: denies tobacco, alcohol, and elicit drug use Present on Admission - Present on Admission Any Indicators Present on Admission: No Review of Systems - Review of Systems All systems: reviewed and no additional remarkable complaints except (as per HPI ) Past Patient History - Infectious Disease Hx of Infectious Diseases: None - Tetanus Immunizations Tetanus Immunization: Unknown - Past Medical History & Family History Past Medical History?: No - Past Social History Smoking Status: Unknown If Ever Smoked - CARDIAC Hx Hypertension: Yes - PULMONARY Other/Comment: Tracheostomy present - NEUROLOGICAL Hx Neurological Disorder: No Hx Alzheimer's Disease: No HX Cerebrovascular Accident: No Hx Dementia: No Hx Dizziness: No Hx Meningitis: No Hx Migraine: No Hx Parkinson's Disease: No Hx Seizures: No Hx Transient Ischemic Attacks (TIA): No - HEENT Hx HEENT Problems: No Hx Blind: No Hx Cataracts: No Hx Deafness: No Hx Difficulty Chewing: No Hx Epistaxis: No Hx Glaucoma: No Hx Macular Degeneration: No - RENAL Hx Chronic Kidney Disease: No Hx Dialysis: No Hx Kidney Stones: No Hx Neurogenic Bladder: No Hx Pyelonephritis: No Hx Renal (Kidney) Cancer: No Hx Renal Failure: No - ENDOCRINE/METABOLIC Other/Comment: Thyroid CA - HEMATOLOGICAL/ONCOLOGICAL Hx Blood Disorders: No Hx AIDS: No Hx Anemia: No Hx Cancer: Yes Hx Chemotherapy: Yes Hx Cirrhosis: No Hx Hemophilia: No Hx Hepatitis A: No Hx Hepatitis B: No Hx Hepatitis C: No Hx Metastesis: No Hx Shingles: No Hx Sickle Cell Disease: No Hx Unexplained Bleeding: No - INTEGUMENTARY Hx Dermatological Problems: No Hx Basil Cell: No Hx Eczema: No Hx Melanoma: No Hx Psoriasis: No Hx Squamous Cell: No - MUSCULOSKELETAL/RHEUMATOLOGICAL Hx Musculoskeletal Disorders: No Hx Arthritis: No Hx Degenerative Joint Disease: No Hx Falls: No Hx Gout: No Hx Herniated Disk: No Hx Myasthenia Gravis: No Hx Osteoarthritis: No Hx Osteomyelitis: No Hx Osteoporosis: No Hx Rhabdomyolysis: No Hx Spinal Stenosis: No Hx Unsteady Gait: No - GASTROINTESTINAL Other/Comment: PEG tube present. - GENITOURINARY/GYNECOLOGICAL Hx Genitourinary Disorders: No Hx Hematuria: No Hx Incontinence: No Hx Sexually Transmitted Disorders: No - PSYCHIATRIC Hx Psychophysiologic Disorder: No Hx Anxiety: No Hx Bipolar Disorder: No Hx Depression: No Hx Emotional Abuse: No Hx Hallucinations: No Hx Panic Symptoms: No Hx Post Traumatic Stress Disorder: No Hx Psychosis: No Hx Physical Abuse: No Hx Schizophrenia: No Hx Sexual Abuse: No Hx Substance Use: No - SURGICAL HISTORY Other/Comment: 3 thyroid sx, trach placement and peg tube, thyroid ca - ANESTHESIA Hx Anesthesia: Yes Meds Allergies/Adverse Reactions: Allergies Allergy/AdvReac Type Severity Reaction Status Date / Time shellfish derived Allergy ANAPHYLAXIS Verified 08/23/17 18:40 Physical Exam - Constitutional Appears: Non-toxic, No Acute Distress - Head Exam Head Exam: ATRAUMATIC, NORMAL INSPECTION, NORMOCEPHALIC - Eye Exam Eye Exam: EOMI, Normal appearance, PERRL - ENT Exam ENT Exam: Mucous Membranes Moist, Normal Oropharynx - Neck Exam Additional comments: trach collar in place - Respiratory Exam Respiratory Exam: Wheezes, NORMAL BREATHING PATTERN. absent: Accessory Muscle Use, Rales, Rhonchi, Respiratory Distress - Cardiovascular Exam Cardiovascular Exam: Tachycardia, RRR, +S1, +S2, Systolic Murmur. absent: Bradycardia, JVD - GI/Abdominal Exam GI & Abdominal Exam: Normal Bowel Sounds, Soft. absent: Distended, Tenderness Additional comments: Peg in place - Extremities Exam Extremities exam: Positive for: normal capillary refill, normal inspection, pedal pulses present. Negative for: calf tenderness, pedal edema, tenderness - Neurological Exam Neurological exam: Alert, Oriented x3 - Psychiatric Exam Psychiatric exam: Normal Affect, Normal Mood - Skin Skin Exam: Dry, Intact, Normal Color, Warm Results - Vital Signs Recent Vital Signs: Last Vital Signs Temp 97.7 F 08/23/17 12:29 Pulse 110 H 08/23/17 12:29 Resp 18 08/23/17 12:29 BP 114/65 08/23/17 12:29 Pulse Ox 99 08/23/17 12:29 - Labs Result Diagrams: 08/23/17 11:20 08/23/17 11:20 Assessment & Plan - Assessment and Plan (Free Text) Assessment: 71F with PMH of DM, HTN, papillary thyroid cancer, hypothyroidism, pneumonia, and COPD who presents to the ED with cough, fever, and chills for 2 days duration and leukocytosis with tachycardia. Plan: Cough with wheezing * fever, leukocytosis, tachycardia * CXR * flu negative * blood culture * sputum culture * procal * UA pos for trace blood * EKG: sinus tachy @ 108 bpm * BNP 791 * Tylenol PRN * Azithromycin 500 mg QD * Ceftriaxone 1 g QD * tessalon perles * Duonebs Q4 FREDDY and Q2 PRN * Solumedrol 40 mg IV QD DM * SSI med dose * Levemir 6 units HS * Accuchecks ACHS HTN * Norvasc 10 mg QD * Losartan 25 mg PO QD HLD * Lipitor 40 mg QD Hypothyroidism * Levothyroxine 88 mcg QD Prophylaxis * GI - protonix 40 QD * DVT - heparin 5000 units Q12h <Ramona Mancia - Last Filed: 08/25/17 11:46> Results - Vital Signs Recent Vital Signs: Last Vital Signs Temp 98 F 08/25/17 08:15 Pulse 107 H 08/25/17 09:57 Resp 20 08/25/17 08:15 BP 117/56 L 08/25/17 09:57 Pulse Ox 99 08/25/17 08:15 - Labs Result Diagrams: 08/25/17 10:55 08/25/17 10:40 Labs: Laboratory Results - last 24 hr 08/24/17 08/24/17 08/24/17 07:00 16:04 21:29 WBC RBC Hgb Hct MCV MCH MCHC RDW Plt Count MPV Gran % Lymph % (Auto) Pepin % (Auto) Eos % (Auto) Baso % (Auto) Gran # Lymph # (Auto) Pepin # (Auto) Eos # (Auto) Baso # (Auto) Sodium Potassium Chloride Carbon Dioxide Anion Gap BUN Creatinine Est GFR ( Amer) Est GFR (Non-Af Amer) POC Glucose (mg/dL) 175 H 202 H Random Glucose Calcium Total Bilirubin AST ALT Alkaline Phosphatase Total Protein Albumin Globulin Albumin/Globulin Ratio Amylase Lipase Procalcitonin 0.28 08/25/17 08/25/17 08/25/17 07:15 10:40 10:55 WBC 14.7 H RBC 4.25 Hgb 11.5 L Hct 36.4 MCV 85.6 MCH 27.1 MCHC 31.6 RDW 13.8 Plt Count 317 MPV 9.1 Gran % 88.5 H Lymph % (Auto) 5.5 L Pepin % (Auto) 5.9 Eos % (Auto) 0.0 L Baso % (Auto) 0.1 Gran # 12.96 H Lymph # (Auto) 0.8 L Pepin # (Auto) 0.9 H Eos # (Auto) 0.0 Baso # (Auto) 0.02 Sodium 142 Potassium 4.2 Chloride 101 Carbon Dioxide 28 Anion Gap 16 BUN 17 Creatinine 0.6 L Est GFR ( Amer) > 60 Est GFR (Non-Af Amer) > 60 POC Glucose (mg/dL) 92 Random Glucose 102 Calcium 9.3 Total Bilirubin 0.2 AST 35 ALT 58 H Alkaline Phosphatase 109 Total Protein 7.4 Albumin 4.1 Globulin 3.3 Albumin/Globulin Ratio 1.2 Amylase 76 Lipase 177 Procalcitonin 08/25/17 11:18 WBC RBC Hgb Hct MCV MCH MCHC RDW Plt Count MPV Gran % Lymph % (Auto) Pepin % (Auto) Eos % (Auto) Baso % (Auto) Gran # Lymph # (Auto) Pepin # (Auto) Eos # (Auto) Baso # (Auto) Sodium Potassium Chloride Carbon Dioxide Anion Gap BUN Creatinine Est GFR ( Amer) Est GFR (Non-Af Amer) POC Glucose (mg/dL) 150 H Random Glucose Calcium Total Bilirubin AST ALT Alkaline Phosphatase Total Protein Albumin Globulin Albumin/Globulin Ratio Amylase Lipase Procalcitonin Attending/Attestation - Attestation I have fully participated in the care of the patient.: Yes I have reviewed all pertinent clinical information: Yes Notes (Text): 08/25/17 11:44 Patient was seen and examined with medical physiologist. Family at bed side.Agreed with assessment and plan. 71F with PMH of DM, HTN, papillary thyroid cancer,SP thraceastomy and PEG tube, SP Radiation therapy, hypothyroidism, pneumonia, and COPD who presents to the ED complaining of cough, fever, and chills for 2 days duration, found to have COPD exacerbation, no Pneumonia on chest X ray.Agreed with NEB, Steroid and antubiotics.We lorene follow up cultures. Management plan was discussed in detail with patient. Education was provided.
[2017-08-23 13:37] LABS: URINE BILIRUBIN NEGATIVE (NEGATIVE); URINE BLOOD TRACE-INTACT (NEGATIVE); URINE GLUCOSE (UA) NEGATIVE (NEGATIVE); URINE LEUKOCYTE ESTERASE NEGATIVE Leu/uL (NEGATIVE); URINE NITRATE NEGATIVE (NEGATIVE); URINE PROTEIN NEGATIVE mg/dL (<30 mg/dL); URINE UROBILINOGEN 0.2 E.U./dL (<1 E.U./dL)
[2017-08-23 13:40] LABS: URINE APPEARANCE CLEAR (CLEAR); URINE COLOR YELLOW (YELLOW)
[2017-08-23 13:44] LABS: URINE BACTERIA FEW (NEG)
[2017-08-23] MEDS ORDERED: Albuterol-Ipratrop 3 mg / 0.5 (3 ml) UD IH PRN (14:10)
[2017-08-23 14:13] LABS: BAND 3 % (0-2); LYMPHOCYTE 4 % (22.0-35.0); MONOCYTE 4 % (1.0-6.0); NEUTROPHIL 89 % (50.0-70.0); PLATELET ESTIMATE NORMAL (NORMAL)
--- NOTE | 2017-08-23 14:26 | RAD ---
HISTORY: sob COMPARISON: 12/29/2016 FINDINGS: LUNGS: No active pulmonary disease. Tracheostomy PLEURA: No significant pleural effusion identified, no pneumothorax apparent. CARDIOVASCULAR: Normal. OSSEOUS STRUCTURES: No significant abnormalities. VISUALIZED UPPER ABDOMEN: Normal. OTHER FINDINGS: None. IMPRESSION: No active disease.
[2017-08-23] MEDS: cefTRIAXone 1 gm 1 GM/100 ML BAG IVPB SCH (14:49)
[2017-08-23] MEDS: Azithromycin 500MG/NS 250ml 500 MG/250 ML BAG IVPB SCH (15:46)
[2017-08-23] MEDS: Insulin Reg-MEDIUM-Coverage SC SCH ×2 (17:49→21:54)
--- NOTE | 2017-08-23 18:01 | CARD ---
APPROVED REPORT EKG Measurement Heart [id number] <Conclusion> Sinus tachycardia Otherwise normal ECG
[2017-08-23] MEDS: Albuterol-Ipratrop 3 mg / 0.5 (3 ml) UD IH SCH ×3 (19:05→23:57)
[2017-08-23 19:12] VITALS: BMI 18.1
[2017-08-23] MEDS: Insulin Detemir 100 units/ml Vial (Levemir) SC SCH (21:52)
[2017-08-24] MEDS: Albuterol-Ipratrop 3 mg / 0.5 (3 ml) UD IH SCH ×5 (03:50→20:07)
[2017-08-24] MEDS: Insulin Reg-MEDIUM-Coverage SC SCH ×4 (08:25→22:09)
[2017-08-24] MEDS: Pantoprazole 40 mg EC Tab PO SCH (09:00)
[2017-08-24] MEDS: Levothyroxine 88 MCG TAB PO SCH (09:00)
[2017-08-24] MEDS: cefTRIAXone 1 gm 1 GM/100 ML BAG IVPB SCH (09:01)
[2017-08-24] MEDS: Azithromycin 500MG/NS 250ml 500 MG/250 ML BAG IVPB SCH (09:01)
[2017-08-24 09:02] VITALS: O2SAT 99
[2017-08-24 09:18] LABS: ALB/GLOB RATIO 1.2 (1.1-1.8); ALBUMIN 4.1 g/dL (3.0-4.8); ALT/SGPT 61 U/L (7-56); AST/SGOT 43 U/L (14-36); BLOOD UREA NITROGEN 19 mg/dL (7-21); GFR AFRICAN-AMERICAN > 60; GFR NON-AFRICAN AMERICAN > 60
[2017-08-24 09:19] LABS: GRAN # 15.59 (1.4-6.5); GRAN % 94.8 % (50.0-68.0); LYMPH # 0.3 (1.2-3.4); LYMPH % 1.9 % (22.0-35.0); MEAN CELL VOLUME 84.2 fl (80.0-105.0); MEAN CORPUSCULAR HEMOGLOBIN 27.2 pg (25.0-35.0); MEAN CORPUSCULAR HGB CONC 32.4 g/dl (31.0-37.0); MEAN PLATELET VOLUME 9.3 fl (7.0-11.0); MONO # 0.6 (0.1-0.6); MONO % 3.3 % (1.0-6.0); RBC 4.04 10^6/uL (3.5-6.1); RED CELL DISTRIBUTION WIDTH 13.6 % (11.5-14.5); WHITE BLOOD COUNT 16.5 10^3/ul (4.5-11.0)
[2017-08-24] MEDS ORDERED: Non Formulary Medication (Multivit-Min/Fa/Lycopen/Lutein [Centrum Silver Tablet] 1 EACH) PO SCH (10:00)
[2017-08-24] MEDS ORDERED: MethylPREDNISolone 40 mg Vial IVP SCH (10:00)
[2017-08-24] MEDS: Non Formulary Medication (Multivit-Min/Fa/Lycopen/Lutein [Centrum Silver Tablet] 1 EACH) PO SCH (13:02)
--- NOTE | 2017-08-24 13:25 | CP.PCM.PN ---
<Nellie Frye - Last Filed: 08/24/17 13:21> Subjective - Date & Time of Evaluation Date of Evaluation: 08/24/17 Time of Evaluation: 07:15 - Subjective Subjective: Patient seen and examined at bedside. No acute events overnight. Patient resting comfortably in bed with no new complaints at this time other than some nausea after her tube feeds. Patient says the cough has improved and the leg pain is gone. She denies chest pain, SOB, abdominal pain, vomiting, diarrhea, constipation, and leg swelling. Objective - Vital Signs/Intake and Output Vital Signs (last 24 hours): Temp Pulse Resp BP Pulse Ox 98.3 F 98 H 19 109/49 L 99 08/24/17 06:00 08/24/17 09:00 08/24/17 06:00 08/24/17 09:00 08/24/17 06:00 Intake and Output: 08/24/17 08/24/17 06:59 18:59 Intake Total 0 Balance 0 - Medications Medications: Current Medications Acetaminophen (Tylenol 325mg Tab) 650 mg PO Q6H PRN PRN Reason: Fever >100.4 F Albuterol/Ipratropium (Duoneb 3 Mg/0.5 Mg (3 Ml) Ud) 3 ml IH [id number] [facility] Last Admin: 08/24/17 11:37 Dose: 3 ml Albuterol/Ipratropium (Duoneb 3 Mg/0.5 Mg (3 Ml) Ud) 3 ml IH Q2H PRN PRN Reason: Shortness of Breath Amlodipine Besylate (Norvasc) 10 mg PO DAILY [facility] Atorvastatin Calcium (Lipitor) 40 mg PO DAILY [facility] Last Admin: 08/24/17 09:00 Dose: 40 mg Benzonatate (Tessalon Perles) 100 mg PO TID PRN PRN Reason: Cough Last Admin: 08/24/17 08:59 Dose: 100 mg Heparin Sodium (Porcine) (Heparin) 5,000 units SC Q12 [facility] PRN Reason: Protocol Last Admin: 08/24/17 08:59 Dose: 5,000 units Ceftriaxone Sodium (Rocephin 1 Gram Ivpb) 1 gm in 100 mls @ 100 mls/hr IVPB DAILY [facility] PRN Reason: Protocol Stop: 08/27/17 10:59 Last Admin: 02/09/18 09:01 Dose: 100 mls/hr Azithromycin (Zithromax 500mg In Ns) 500 mg in 250 mls @ 167 mls/hr IVPB DAILY [facility] PRN Reason: Protocol Last Admin: 08/24/17 09:01 Dose: 167 mls/hr Insulin Detemir (Levemir) 6 unit SC HS [facility] Last Admin: 08/23/17 21:52 Dose: 6 unit Insulin Human Regular (Humulin R Med) 0 units SC ACHS [facility] PRN Reason: Protocol Last Admin: 08/24/17 12:37 Dose: Not Given Levothyroxine Sodium (Synthroid) 88 mcg PO DAILY [facility] Last Admin: 08/24/17 09:00 Dose: 88 mcg Losartan Potassium (Cozaar) 25 mg PO DAILY [facility] Last Admin: 08/24/17 09:00 Dose: 25 mg Methylprednisolone (Solu-Medrol) 40 mg IVP DAILY [facility] Last Admin: 08/24/17 08:59 Dose: 40 mg Metoclopramide HCl (Reglan) 5 mg GT AC [facility] Non-Formulary Medication (Multivit-Min/Fa/Lycopen/Lutein [Centrum Silver Tablet] ) 1 each PO DAILY [facility] Last Admin: 08/24/17 13:02 Dose: Not Given Ondansetron HCl (Zofran Inj) 4 mg IVP Q6H PRN PRN Reason: Nausea/Vomiting Last Admin: 08/24/17 09:27 Dose: 4 mg Pantoprazole Sodium (Protonix Ec Tab) 40 mg PO DAILY [facility] Last Admin: 08/24/17 09:00 Dose: 40 mg - Labs Labs: 08/24/17 08:30 08/24/17 08:30 PT 11.9 SECONDS (9.4-12.5) 08/23/17 11:07 INR 1.03 (0.93-1.08) 08/23/17 11:07 APTT 28.2 Seconds (25.1-36.5) 08/24/17 08:00 - Constitutional Appears: Non-toxic, No Acute Distress - Head Exam Head Exam: ATRAUMATIC, NORMAL INSPECTION, NORMOCEPHALIC - Eye Exam Eye Exam: EOMI, Normal appearance, PERRL - ENT Exam ENT Exam: Mucous Membranes Moist - Respiratory Exam Respiratory Exam: Clear to Ausculation Bilateral, NORMAL BREATHING PATTERN. absent: Accessory Muscle Use, Rales, Rhonchi, Wheezes, Respiratory Distress - Cardiovascular Exam Cardiovascular Exam: RRR, +S1, +S2 - GI/Abdominal Exam GI & Abdominal Exam: Soft, Normal Bowel Sounds. absent: Distended, Tenderness - Extremities Exam Extremities Exam: Normal Inspection. absent: Calf Tenderness, Pedal Edema - Neurological Exam Neurological Exam: Alert, Awake, Oriented x3 - Psychiatric Exam Psychiatric exam: Normal Affect, Normal Mood - Skin Skin Exam: Dry, Intact, Normal Color, Warm Assessment and Plan - Assessment and Plan (Free Text) Assessment: 71F with PMH of DM, HTN, papillary thyroid cancer, hypothyroidism, pneumonia, and COPD who presents to the ED with cough, fever, and chills for 2 days duration and leukocytosis with tachycardia. Plan: Cough with wheezing * fever, leukocytosis, tachycardia * CXR * flu negative * blood culture negative * sputum culture pending * procal * UA pos for trace blood * EKG: sinus tachy @ 108 bpm * BNP 791 * Tylenol PRN * Azithromycin 500 mg QD * Ceftriaxone 1 g QD * tessalon perles * Duonebs Q4 FREDDY and Q2 PRN * Prednisone 40 mg PO QD Nausea with tube feeds * possibly 2/2 new formula * Reglan 5mg with meals DM * SSI med dose * Levemir 6 units HS * Accuchecks ACHS HTN * Norvasc 10 mg QD * Losartan 25 mg PO QD HLD * Lipitor 40 mg QD Hypothyroidism * Levothyroxine 88 mcg QD Prophylaxis * GI - protonix 40 QD * DVT - heparin 5000 units Q12h <Ramona Mancia - Last Filed: 08/25/17 11:48> Objective - Vital Signs/Intake and Output Vital Signs (last 24 hours): Temp Pulse Resp BP Pulse Ox 98 F 107 H 20 117/56 L 99 08/25/17 08:15 08/25/17 09:57 08/25/17 08:15 08/25/17 09:57 08/25/17 08:15 Intake and Output: 08/25/17 08/25/17 06:59 18:59 Intake Total 0 Balance 0 - Medications Medications: Current Medications Acetaminophen (Tylenol 325mg Tab) 650 mg PO Q6H PRN PRN Reason: Fever >100.4 F Last Admin: 08/24/17 19:35 Dose: 650 mg Al Hydrox/Mg Hydrox/Simethicone (Maalox Plus 30 Ml) 30 ml PO DAILY PRN PRN Reason: Indigestion / Heartburn Albuterol/Ipratropium (Duoneb 3 Mg/0.5 Mg (3 Ml) Ud) 3 ml IH [id number] [facility] Last Admin: 08/25/17 07:57 Dose: 3 ml Albuterol/Ipratropium (Duoneb 3 Mg/0.5 Mg (3 Ml) Ud) 3 ml IH Q2H PRN PRN Reason: Shortness of Breath Amlodipine Besylate (Norvasc) 10 mg PO DAILY [facility] Last Admin: 08/25/17 09:57 Dose: 10 mg Atorvastatin Calcium (Lipitor) 40 mg PO DAILY [facility] Last Admin: 08/25/17 09:57 Dose: 40 mg Benzonatate (Tessalon Perles) 100 mg PO TID PRN PRN Reason: Cough Last Admin: 08/24/17 16:23 Dose: 100 mg Heparin Sodium (Porcine) (Heparin) 5,000 units SC Q12 [facility] PRN Reason: Protocol Last Admin: 08/25/17 09:57 Dose: 5,000 units Ceftriaxone Sodium (Rocephin 1 Gram Ivpb) 1 gm in 100 mls @ 100 mls/hr IVPB DAILY [facility] PRN Reason: Protocol Stop: 08/27/17 10:59 Last Admin: 08/25/17 09:58 Dose: 100 mls/hr Azithromycin (Zithromax 500mg In Ns) 500 mg in 250 mls @ 167 mls/hr IVPB DAILY [facility] PRN Reason: Protocol Last Admin: 08/25/17 11:38 Dose: 167 mls/hr Insulin Detemir (Levemir) 6 unit SC HS [facility] Last Admin: 08/24/17 22:08 Dose: 6 unit Insulin Human Regular (Humulin R Med) 0 units SC ACHS [facility] PRN Reason: Protocol Last Admin: 08/25/17 07:37 Dose: Not Given Levothyroxine Sodium (Synthroid) 88 mcg PO DAILY [facility] Last Admin: 08/25/17 09:57 Dose: 88 mcg Losartan Potassium (Cozaar) 25 mg PO DAILY [facility] Last Admin: 08/25/17 09:57 Dose: 25 mg Metoclopramide HCl (Reglan) 5 mg GT AC [facility] Last Admin: 08/25/17 09:58 Dose: 5 mg Non-Formulary Medication (Multivit-Min/Fa/Lycopen/Lutein [Centrum Silver Tablet] ) 1 each PO DAILY [facility] Last Admin: 08/25/17 09:59 Dose: Not Given Ondansetron HCl (Zofran Inj) 4 mg IVP Q6H PRN PRN Reason: Nausea/Vomiting Last Admin: 08/24/17 09:27 Dose: 4 mg Pantoprazole Sodium (Protonix Ec Tab) 40 mg PO DAILY [facility] Last Admin: 08/25/17 09:58 Dose: Not Given Pantoprazole Sodium (Protonix Inj) 40 mg IVP Q12 [facility] Last Admin: 08/25/17 09:57 Dose: 40 mg Prednisone (Prednisone Tab) 40 mg PO DAILY [facility] Last Admin: 08/25/17 09:58 Dose: 40 mg - Labs Labs: 08/25/17 10:55 08/25/17 10:40 PT 11.9 SECONDS (9.4-12.5) 08/23/17 11:07 INR 1.03 (0.93-1.08) 08/23/17 11:07 APTT 28.2 Seconds (25.1-36.5) 08/24/17 08:00 Attending/Attestation - Attestation I have personally seen and examined this patient.: Yes I have fully participated in the care of the patient.: Yes I have reviewed all pertinent clinical information, including history, physical exam and plan: Yes Notes (Text): 08/25/17 11:47 Patient was seen and examined with medical care administrator. Family at bed side.Agreed with assessment and plan. 71F with PMH of DM, HTN, papillary thyroid cancer,SP thraceastomy and PEG tube, SP Radiation therapy, hypothyroidism, pneumonia, and COPD who presents to the ED complaining of cough, fever, and chills for 2 days duration, found to have COPD exacerbation, no Pneumonia on chest X ray. Cough and wheezing is improving, will switch to oral Prednisone. C/O epigastric pain after feeding.Abdominal examination is unremarkable except for epigastric tenderness.We will monitor, continue PPI Management plan was discussed in detail with patient. Education was provided.
[2017-08-24] MEDS: Metoclopramide 5 mg/5 ml Oral Sol GT SCH (16:58)
[2017-08-24] MEDS ORDERED: Simethicone 40 mg/0.6 ml Liquid (30 ml) PO ONE (18:09)
[2017-08-24] MEDS ORDERED: Bacitracin Ointment 30 GM TUBE TOP ONE (18:10)
[2017-08-24] MEDS: Insulin Detemir 100 units/ml Vial (Levemir) SC SCH (22:08)
[2017-08-25] MEDS: Albuterol-Ipratrop 3 mg / 0.5 (3 ml) UD IH SCH ×6 (01:35→19:36)
[2017-08-25] MEDS: Insulin Reg-MEDIUM-Coverage SC SCH ×4 (07:37→21:38)
[2017-08-25] MEDS ORDERED: Alum-Mag Hydrox-Simethicone Susp (30 mL) PO PRN (09:41)
[2017-08-25] MEDS: Levothyroxine 88 MCG TAB PO SCH (09:57)
[2017-08-25] MEDS: Pantoprazole 40 mg EC Tab PO SCH (09:58)
[2017-08-25] MEDS: Metoclopramide 5 mg/5 ml Oral Sol GT SCH ×3 (09:58→17:13)
[2017-08-25] MEDS: cefTRIAXone 1 gm 1 GM/100 ML BAG IVPB SCH (09:58)
[2017-08-25] MEDS: Non Formulary Medication (Multivit-Min/Fa/Lycopen/Lutein [Centrum Silver Tablet] 1 EACH) PO SCH (09:59)
--- NOTE | 2017-08-25 10:14 | CP.PCM.PN ---
<Nitza Russell - Last Filed: 08/25/17 10:07> Subjective - Date & Time of Evaluation Date of Evaluation: 08/25/17 Time of Evaluation: 10:08 - Subjective Subjective: Nitza Russell, PGY1, Medicine Progress Note for Dr Mancia: Patient seen and examined at bedside. Pt complained of abdominal pain overnight. Pt reports LUQ abdominal pain, at the ostomy site. Reports improvement in cough. Denies fever, chills, nausea, vomiting, diarrhea, obstipation. Pt had a BM this AM. Objective - Vital Signs/Intake and Output Vital Signs (last 24 hours): Temp Pulse Resp BP Pulse Ox 98 F 107 H 20 117/56 L 99 08/25/17 08:15 08/25/17 09:57 08/25/17 08:15 08/25/17 09:57 08/25/17 08:15 Intake and Output: 08/25/17 08/25/17 06:59 18:59 Intake Total 0 Balance 0 - Medications Medications: Current Medications Acetaminophen (Tylenol 325mg Tab) 650 mg PO Q6H PRN PRN Reason: Fever >100.4 F Last Admin: 08/24/17 19:35 Dose: 650 mg Al Hydrox/Mg Hydrox/Simethicone (Maalox Plus 30 Ml) 30 ml PO DAILY PRN PRN Reason: Indigestion / Heartburn Albuterol/Ipratropium (Duoneb 3 Mg/0.5 Mg (3 Ml) Ud) 3 ml IH [id number] [facility] Last Admin: 08/25/17 07:57 Dose: 3 ml Albuterol/Ipratropium (Duoneb 3 Mg/0.5 Mg (3 Ml) Ud) 3 ml IH Q2H PRN PRN Reason: Shortness of Breath Amlodipine Besylate (Norvasc) 10 mg PO DAILY [facility] Last Admin: 08/25/17 09:57 Dose: 10 mg Atorvastatin Calcium (Lipitor) 40 mg PO DAILY [facility] Last Admin: 08/25/17 09:57 Dose: 40 mg Benzonatate (Tessalon Perles) 100 mg PO TID PRN PRN Reason: Cough Last Admin: 08/24/17 16:23 Dose: 100 mg Heparin Sodium (Porcine) (Heparin) 5,000 units SC Q12 [facility] PRN Reason: Protocol Last Admin: 08/25/17 09:57 Dose: 5,000 units Ceftriaxone Sodium (Rocephin 1 Gram Ivpb) 1 gm in 100 mls @ 100 mls/hr IVPB DAILY [facility] PRN Reason: Protocol Stop: 08/27/17 10:59 Last Admin: 08/25/17 09:58 Dose: 100 mls/hr Azithromycin (Zithromax 500mg In Ns) 500 mg in 250 mls @ 167 mls/hr IVPB DAILY [facility] PRN Reason: Protocol Last Admin: 08/24/17 09:01 Dose: 167 mls/hr Insulin Detemir (Levemir) 6 unit SC HS [facility] Last Admin: 08/24/17 22:08 Dose: 6 unit Insulin Human Regular (Humulin R Med) 0 units SC ACHS [facility] PRN Reason: Protocol Last Admin: 08/25/17 07:37 Dose: Not Given Levothyroxine Sodium (Synthroid) 88 mcg PO DAILY [facility] Last Admin: 08/25/17 09:57 Dose: 88 mcg Losartan Potassium (Cozaar) 25 mg PO DAILY [facility] Last Admin: 08/25/17 09:57 Dose: 25 mg Metoclopramide HCl (Reglan) 5 mg GT AC [facility] Last Admin: 08/25/17 09:58 Dose: 5 mg Non-Formulary Medication (Multivit-Min/Fa/Lycopen/Lutein [Centrum Silver Tablet] ) 1 each PO DAILY [facility] Last Admin: 08/25/17 09:59 Dose: Not Given Ondansetron HCl (Zofran Inj) 4 mg IVP Q6H PRN PRN Reason: Nausea/Vomiting Last Admin: 08/24/17 09:27 Dose: 4 mg Pantoprazole Sodium (Protonix Ec Tab) 40 mg PO DAILY [facility] Last Admin: 08/25/17 09:58 Dose: Not Given Pantoprazole Sodium (Protonix Inj) 40 mg IVP Q12 [facility] Last Admin: 08/25/17 09:57 Dose: 40 mg Prednisone (Prednisone Tab) 40 mg PO DAILY [facility] Last Admin: 08/25/17 09:58 Dose: 40 mg - Labs Labs: 08/24/17 08:30 08/24/17 08:30 PT 11.9 SECONDS (9.4-12.5) 08/23/17 11:07 INR 1.03 (0.93-1.08) 08/23/17 11:07 APTT 28.2 Seconds (25.1-36.5) 08/24/17 08:00 - Additional Findings Additional findings: - Constitutional Appears: Non-toxic, No Acute Distress - Head Exam Head Exam: ATRAUMATIC, NORMAL INSPECTION, NORMOCEPHALIC - Eye Exam Eye Exam: EOMI, Normal appearance, PERRL - ENT Exam ENT Exam: Mucous Membranes Moist - Respiratory Exam Respiratory Exam: + tracheostomy. Clear to Auscultation Bilateral, NORMAL BREATHING PATTERN. absent: Accessory Muscle Use, Rales, Rhonchi, Wheezes, Respiratory Distress - Cardiovascular Exam Cardiovascular Exam: RRR, +S1, +S2 - GI/Abdominal Exam GI & Abdominal Exam: Soft, Normal Bowel Sounds. ostomy site pink, no drainage/ warmth/redness/fluctuance appreciated. Mildly TTP in LUQ, near ostomy site. absent: Distended, rebound, rigidity. - Extremities Exam Extremities Exam: Normal Inspection. absent: Calf Tenderness, Pedal Edema - Neurological Exam Neurological Exam: Alert, Awake, Oriented x3 - Psychiatric Exam Psychiatric exam: Normal Affect, Normal Mood - Skin Skin Exam: Dry, Intact, Normal Color, Warm Assessment and Plan - Assessment and Plan (Free Text) Assessment: 71F with PMH of DM, HTN, papillary thyroid cancer, hypothyroidism, pneumonia, and COPD who presents to the ED with cough, fever, and chills for 2 days duration and leukocytosis with tachycardia. Cough with wheezing * febrile, leukocytosis, tachycardia in ED * CXR neg * flu negative * blood culture negative * sputum culture pending * procal 0.28 * UA pos for trace blood * EKG: sinus tachy @ 108 bpm * BNP 791 * Tylenol PRN * Azithromycin 500 mg QD * Ceftriaxone 1 g QD * tessalon perles * Duonebs Q4 FREDDY and Q2 PRN * Prednisone 40 mg PO QD Nausea/abdominal pain with tube feeds: * possibly 2/2 new formula, rapid feeding tube rate * Reglan 5mg with meals * Obtain abdominal x ray * lipase, amylase * Maalox; increased Protonix to 40 mg IV BID * Will administer tube feeds slowly DM * SSI med dose * Levemir 6 units HS * Accuchecks ACHS HTN * Norvasc 10 mg QD * Losartan 25 mg PO QD HLD * Lipitor 40 mg QD Hypothyroidism * Levothyroxine 88 mcg QD Prophylaxis * GI - protonix 40 QD * DVT - heparin 5000 units Q12h Case seen and discussed with Blanche. <Ramona Mancia - Last Filed: 08/25/17 11:50> Objective - Vital Signs/Intake and Output Vital Signs (last 24 hours): Temp Pulse Resp BP Pulse Ox 98 F 107 H 20 117/56 L 99 08/25/17 08:15 08/25/17 09:57 08/25/17 08:15 08/25/17 09:57 08/25/17 08:15 Intake and Output: 08/25/17 08/25/17 06:59 18:59 Intake Total 0 Balance 0 - Medications Medications: Current Medications Acetaminophen (Tylenol 325mg Tab) 650 mg PO Q6H PRN PRN Reason: Fever >100.4 F Last Admin: 08/24/17 19:35 Dose: 650 mg Al Hydrox/Mg Hydrox/Simethicone (Maalox Plus 30 Ml) 30 ml PO DAILY PRN PRN Reason: Indigestion / Heartburn Albuterol/Ipratropium (Duoneb 3 Mg/0.5 Mg (3 Ml) Ud) 3 ml IH [id number] [facility] Last Admin: 08/25/17 07:57 Dose: 3 ml Albuterol/Ipratropium (Duoneb 3 Mg/0.5 Mg (3 Ml) Ud) 3 ml IH Q2H PRN PRN Reason: Shortness of Breath Amlodipine Besylate (Norvasc) 10 mg PO DAILY [facility] Last Admin: 08/25/17 09:57 Dose: 10 mg Atorvastatin Calcium (Lipitor) 40 mg PO DAILY [facility] Last Admin: 08/25/17 09:57 Dose: 40 mg Benzonatate (Tessalon Perles) 100 mg PO TID PRN PRN Reason: Cough Last Admin: 08/24/17 16:23 Dose: 100 mg Heparin Sodium (Porcine) (Heparin) 5,000 units SC Q12 [facility] PRN Reason: Protocol Last Admin: 08/25/17 09:57 Dose: 5,000 units Ceftriaxone Sodium (Rocephin 1 Gram Ivpb) 1 gm in 100 mls @ 100 mls/hr IVPB DAILY [facility] PRN Reason: Protocol Stop: 08/27/17 10:59 Last Admin: 08/25/17 09:58 Dose: 100 mls/hr Azithromycin (Zithromax 500mg In Ns) 500 mg in 250 mls @ 167 mls/hr IVPB DAILY [facility] PRN Reason: Protocol Last Admin: 08/25/17 11:38 Dose: 167 mls/hr Insulin Detemir (Levemir) 6 unit SC HS [facility] Last Admin: 08/24/17 22:08 Dose: 6 unit Insulin Human Regular (Humulin R Med) 0 units SC ACHS [facility] PRN Reason: Protocol Last Admin: 08/25/17 07:37 Dose: Not Given Levothyroxine Sodium (Synthroid) 88 mcg PO DAILY [facility] Last Admin: 08/25/17 09:57 Dose: 88 mcg Losartan Potassium (Cozaar) 25 mg PO DAILY [facility] Last Admin: 08/25/17 09:57 Dose: 25 mg Metoclopramide HCl (Reglan) 5 mg GT AC [facility] Last Admin: 08/25/17 09:58 Dose: 5 mg Non-Formulary Medication (Multivit-Min/Fa/Lycopen/Lutein [Centrum Silver Tablet] ) 1 each PO DAILY [facility] Last Admin: 08/25/17 09:59 Dose: Not Given Ondansetron HCl (Zofran Inj) 4 mg IVP Q6H PRN PRN Reason: Nausea/Vomiting Last Admin: 08/24/17 09:27 Dose: 4 mg Pantoprazole Sodium (Protonix Ec Tab) 40 mg PO DAILY [facility] Last Admin: 08/25/17 09:58 Dose: Not Given Pantoprazole Sodium (Protonix Inj) 40 mg IVP Q12 [facility] Last Admin: 08/25/17 09:57 Dose: 40 mg Prednisone (Prednisone Tab) 40 mg PO DAILY [facility] Last Admin: 08/25/17 09:58 Dose: 40 mg - Labs Labs: 08/25/17 10:55 08/25/17 10:40 PT 11.9 SECONDS (9.4-12.5) 08/23/17 11:07 INR 1.03 (0.93-1.08) 08/23/17 11:07 APTT 28.2 Seconds (25.1-36.5) 08/24/17 08:00 Attending/Attestation - Attestation I have personally seen and examined this patient.: Yes I have fully participated in the care of the patient.: Yes I have reviewed all pertinent clinical information, including history, physical exam and plan: Yes Notes (Text): 08/25/17 11:49 Patient was seen and examined with medical aides teacher. Agreed with assessment and plan. Management plan was discussed in detail with patient. Education was provided.
[2017-08-25 11:05] LABS: ALB/GLOB RATIO 1.2 (1.1-1.8)
[2017-08-25 11:16] LABS: BASO # 0.02 K/mm3 (0.0-2.0); BASO % 0.1 % (0.0-3.0); GRAN # 12.96 (1.4-6.5); GRAN % 88.5 % (50.0-68.0); HEMOGLOBIN 11.5 g/dL (12.0-16.0); LYMPH # 0.8 (1.2-3.4); LYMPH % 5.5 % (22.0-35.0); MEAN CELL VOLUME 85.6 fl (80.0-105.0); MEAN CORPUSCULAR HEMOGLOBIN 27.1 pg (25.0-35.0); MEAN CORPUSCULAR HGB CONC 31.6 g/dl (31.0-37.0); MEAN PLATELET VOLUME 9.1 fl (7.0-11.0); MONO # 0.9 (0.1-0.6); MONO % 5.9 % (1.0-6.0); RBC 4.25 10^6/uL (3.5-6.1); RED CELL DISTRIBUTION WIDTH 13.8 % (11.5-14.5); WHITE BLOOD COUNT 14.7 10^3/ul (4.5-11.0)
[2017-08-25 11:30] LABS: ALBUMIN 4.1 g/dL (3.0-4.8); ALT/SGPT 58 U/L (7-56); AMYLASE 76 U/L (35-125); AST/SGOT 35 U/L (14-36); BLOOD UREA NITROGEN 17 mg/dL (7-21); CALCIUM 9.3 mg/dL (8.4-10.5); GFR AFRICAN-AMERICAN > 60; GFR NON-AFRICAN AMERICAN > 60; LIPASE 177 U/L (23-300)
[2017-08-25] MEDS: Azithromycin 500MG/NS 250ml 500 MG/250 ML BAG IVPB SCH (11:38)
[2017-08-25] MEDS ORDERED: Acetaminophen 650mg/20.3ml solution UD PO ONE (13:17)
--- NOTE | 2017-08-25 14:46 | RAD ---
HISTORY: Abdominal pain. COMPARISON: 06/24/2017 FINDINGS: BOWEL: Normal. No obstruction. No free air. BONES: Normal. OTHER FINDINGS: Gastrostomy tube again identified. IMPRESSION: No acute findings related to/accounting for the clinical presentation. No significant interval change compared to the prior examination(s).
[2017-08-25] MEDS ORDERED: Phenol Topical 1.4% Throat Spray (180 ml) MT PRN (15:28)
[2017-08-25] MEDS: Simethicone 40 mg/0.6 ml Liquid (30 ml) PO SCH ×2 (17:12→22:13)
[2017-08-25 18:58] VITALS: RESP 19
[2017-08-25] MEDS: Insulin Detemir 100 units/ml Vial (Levemir) SC SCH (21:37)
[2017-08-26] MEDS: Albuterol-Ipratrop 3 mg / 0.5 (3 ml) UD IH SCH ×4 (01:30→11:24)
[2017-08-26] MEDS: Metoclopramide 5 mg/5 ml Oral Sol GT SCH ×2 (07:35→10:31)
[2017-08-26 07:37] LABS: BASO # 0.02 K/mm3 (0.0-2.0); BASO % 0.2 % (0.0-3.0); GRAN # 7.94 (1.4-6.5); GRAN % 80.2 % (50.0-68.0); HEMOGLOBIN 11.2 g/dL (12.0-16.0); LYMPH # 0.9 (1.2-3.4); LYMPH % 8.7 % (22.0-35.0); MEAN CELL VOLUME 86.1 fl (80.0-105.0); MEAN CORPUSCULAR HEMOGLOBIN 26.8 pg (25.0-35.0); MEAN CORPUSCULAR HGB CONC 31.1 g/dl (31.0-37.0); MEAN PLATELET VOLUME 9.1 fl (7.0-11.0); MONO # 1.1 (0.1-0.6); MONO % 10.9 % (1.0-6.0); RBC 4.18 10^6/uL (3.5-6.1); RED CELL DISTRIBUTION WIDTH 13.9 % (11.5-14.5); WHITE BLOOD COUNT 9.9 10^3/ul (4.5-11.0)
[2017-08-26 07:59] VITALS: BP 135/74; PULSE 106; TEMP 98.3
[2017-08-26 08:06] LABS: ALB/GLOB RATIO 1.2 (1.1-1.8); ALBUMIN 3.6 g/dL (3.0-4.8); ALT/SGPT 62 U/L (7-56); AST/SGOT 52 U/L (14-36); BLOOD UREA NITROGEN 17 mg/dL (7-21); CALCIUM 9.1 mg/dL (8.4-10.5); GFR AFRICAN-AMERICAN > 60; GFR NON-AFRICAN AMERICAN > 60
[2017-08-26] MEDS: Insulin Reg-MEDIUM-Coverage SC SCH ×2 (08:41→11:46)
[2017-08-26] MEDS ORDERED: Alum-Mag Hydrox-Simethicone Susp (30 mL) PO SCH (10:00)
[2017-08-26] MEDS: Levothyroxine 88 MCG TAB PO SCH (10:29)
[2017-08-26] MEDS: cefTRIAXone 1 gm 1 GM/100 ML BAG IVPB SCH (10:29)
[2017-08-26] MEDS: Non Formulary Medication (Multivit-Min/Fa/Lycopen/Lutein [Centrum Silver Tablet] 1 EACH) PO SCH (10:30)
[2017-08-26] MEDS: Simethicone 40 mg/0.6 ml Liquid (30 ml) PO SCH (10:31)
[2017-08-26] MEDS: Azithromycin 500MG/NS 250ml 500 MG/250 ML BAG IVPB SCH (12:25)
--- NOTE | 2017-08-26 13:04 | CP.PCM.DIS ---
<Nitza Russell - Last Filed: 08/26/17 12:56> Provider - Provider Date of Admission: 08/23/17 12:52 Attending physician: Ramona Mancia MD Primary care physician: Donya Morris MD Time Spent in preparation of Discharge (in minutes): 35 Diagnosis - Discharge Diagnosis (1) Abdominal distention Status: Acute (2) Chronic obstructive airway disease Status: Acute Hospital Course - Lab Results Lab Results: Most Recent Lab Values WBC 9.9 10^3/ul (4.5-11.0) D 08/26/17 07:00 RBC 4.18 10^6/uL (3.5-6.1) 08/26/17 07:00 Hgb 11.2 g/dL (12.0-16.0) L 08/26/17 07:00 Hct 36.0 % (36.0-48.0) 08/26/17 07:00 MCV 86.1 fl (80.0-105.0) 08/26/17 07:00 MCH 26.8 pg (25.0-35.0) 08/26/17 07:00 MCHC 31.1 g/dl (31.0-37.0) 08/26/17 07:00 RDW 13.9 % (11.5-14.5) 08/26/17 07:00 Plt Count 344 10^3/uL (120.0-450.0) 08/26/17 07:00 MPV 9.1 fl (7.0-11.0) 08/26/17 07:00 Gran % 80.2 % (50.0-68.0) H 08/26/17 07:00 Lymph % (Auto) 8.7 % (22.0-35.0) L 08/26/17 07:00 [place] % (Auto) 10.9 % (1.0-6.0) H 08/26/17 07:00 Eos % (Auto) 0.0 % (1.5-5.0) L 08/26/17 07:00 Baso % (Auto) 0.2 % (0.0-3.0) 08/26/17 07:00 Gran # 7.94 (1.4-6.5) H 08/26/17 07:00 Lymph # (Auto) 0.9 (1.2-3.4) L 08/26/17 07:00 [place] # (Auto) 1.1 (0.1-0.6) H 08/26/17 07:00 Eos # (Auto) 0.0 (0.0-0.7) 08/26/17 07:00 Baso # (Auto) 0.02 K/mm3 (0.0-2.0) 08/26/17 07:00 Neutrophils % (Manual) 89 % (50.0-70.0) H 08/23/17 11:20 Band Neutrophils % 3 % (0-2) H 08/23/17 11:20 Lymphocytes % (Manual) 4 % (22.0-35.0) L 08/23/17 11:20 Monocytes % (Manual) 4 % (1.0-6.0) 08/23/17 11:20 Platelet Evaluation Normal (NORMAL) 08/23/17 11:20 PT 11.9 SECONDS (9.4-12.5) 08/23/17 11:07 INR 1.03 (0.93-1.08) 08/23/17 11:07 APTT 28.2 Seconds (25.1-36.5) 08/24/17 08:00 pO2 83 mm/Hg (30-55) H 08/23/17 11:20 VBG pH 7.43 (7.32-7.43) 08/23/17 11:20 VBG pCO2 46.0 (40-60) 08/23/17 11:20 VBG HCO3 30.5 mmol/l (21-28) H 08/23/17 11:20 VBG Total CO2 31.9 mmol.L (22-28) H 08/23/17 11:20 VBG O2 Sat (Calc) 98.6 % (40-65) H 08/23/17 11:20 VBG Base Excess 5.3 mmol/L (0.0-2.0) H 08/23/17 11:20 VBG Potassium 4.5 mmol/L (3.6-5.2) 08/23/17 11:20 Sodium 133.0 mmol/L (132-148) 08/23/17 11:20 Chloride 99.0 mmol/L (98-107) 08/23/17 11:20 Glucose 158 mg/dl (65-105) H 08/23/17 11:20 Lactate 2.1 mmol/L (0.7-2.1) 08/23/17 11:20 FiO2 21.0 % 08/23/17 11:20 Sodium 142 mmol/L (132-148) 08/26/17 07:00 Potassium 4.0 mmol/L (3.6-5.0) 08/26/17 07:00 Chloride 103 mmol/L (98-107) 08/26/17 07:00 Carbon Dioxide 30 mmol/L (21-33) 08/26/17 07:00 Anion Gap 13 (10-20) 08/26/17 07:00 BUN 17 mg/dL (7-21) 08/26/17 07:00 Creatinine 0.6 mg/dl (0.7-1.2) L 08/26/17 07:00 Est GFR ( Amer) > 60 08/26/17 07:00 Est GFR (Non-Af Amer) > 60 08/26/17 07:00 POC Glucose (mg/dL) 115 mg/dL (65-110) H 08/26/17 11:20 Random Glucose 102 mg/dL (70-110) 08/26/17 07:00 Calcium 9.1 mg/dL (8.4-10.5) 08/26/17 07:00 Magnesium 2.2 mg/dL (1.7-2.2) 08/23/17 11:20 Total Bilirubin 0.2 mg/dL (0.2-1.3) 08/26/17 07:00 AST 52 U/L (14-36) H D 08/26/17 07:00 ALT 62 U/L (7-56) H 08/26/17 07:00 Alkaline Phosphatase 125 U/L (38-126) 08/26/17 07:00 Lactate Dehydrogenase 617 U/L (333-699) 08/23/17 11:20 Total Creatine Kinase 69 U/L (35-230) 08/23/17 11:20 Troponin I < 0.01 ng/mL D 08/23/17 11:20 NT-Pro-B Natriuret Pep 791 pg/mL (0-450) H 08/23/17 11:20 Total Protein 6.7 g/dL (5.8-8.3) 08/26/17 07:00 Albumin 3.6 g/dL (3.0-4.8) 08/26/17 07:00 Globulin 3.1 gm/dL 08/26/17 07:00 Albumin/Globulin Ratio 1.2 (1.1-1.8) 08/26/17 07:00 Amylase 76 U/L (35-125) 08/25/17 10:40 Lipase 177 U/L (23-300) 08/25/17 10:40 Procalcitonin 0.28 NG/ML (0.19-0.49) 08/24/17 07:00 Venous Blood Potassium 4.5 mmol/L (3.6-5.2) 08/23/17 11:20 Urine Color Yellow (YELLOW) 08/23/17 13:00 Urine Appearance Clear (CLEAR) 08/23/17 13:00 Urine pH 6.0 (4.7-8.0) 08/23/17 13:00 Ur Specific [place] 1.010 (1.005-1.035) 08/23/17 13:00 Urine Protein Negative mg/dL (<30 mg/dL) 08/23/17 13:00 Urine Glucose (UA) Negative mg/dL (NEGATIVE) 08/23/17 13:00 Urine Ketones Negative mg/dL (NEGATIVE) 08/23/17 13:00 Urine Blood Trace-intact (NEGATIVE) H 08/23/17 13:00 Urine Nitrate Negative (NEGATIVE) 08/23/17 13:00 Urine Bilirubin Negative (NEGATIVE) 08/23/17 13:00 Urine Urobilinogen 0.2 E.U./dL (<1 E.U./dL) 08/23/17 13:00 Ur Leukocyte Esterase Negative Basil/uL (NEGATIVE) 08/23/17 13:00 Urine RBC 5 - 10 /hpf (0-2) 08/23/17 13:00 Urine WBC 1 - 3 /hpf (0-6) 08/23/17 13:00 Ur Epithelial Cells 3 - 4 /hpf (0-5) 08/23/17 13:00 Urine Bacteria Few (NEG) 08/23/17 13:00 Influenza Typ A,B (EIA) Negative for flu a/b (NEGATIVE) 08/23/17 11:20 - Hospital Course Hospital Course: 71F with PMH of DM, HTN, papillary thyroid cancer, hypothyroidism, pneumonia, and COPD who presents to the ED complaining of cough, fever, and chills for 2 days duration. Pt admitted for COPD exacerbation. Pt treated with high dose PO steroids, duonebs, throat spray. Pt then developed abdominal pain at the site of her feeding tube. Abdominal x ray negative for perforation. Administered tube feeds slowly, increased her protonix to twice daily, started simethicone. Pt had resultion of her pain. Pt advised to take tylenol for pain, and to take tube feeds slowly at home. Given home prednisone. Pt to f/u with PMD in 1 week. Discharge Exam - Head Exam Head Exam: ATRAUMATIC, NORMAL INSPECTION, NORMOCEPHALIC - Eye Exam Eye Exam: EOMI, PERRL. absent: Conjunctival injection, Nystagmus, Scleral icterus Pupil Exam: NORMAL ACCOMODATION, PERRL. absent: Irregular, Unequal - ENT Exam ENT Exam: Mucous Membranes Moist - Respiratory Exam Respiratory Exam: Clear to PA & Lateral. absent: Accessory Muscle Use, Chest Wall Tenderness, Respiratory Distress - Cardiovascular Exam Cardiovascular Exam: RRR, +S1, +S2. absent: Systolic Murmur - GI/Abdominal Exam GI & Abdominal Exam: Normal Bowel Sounds, Soft. absent: Bruit, Distended, Organomegaly, Rebound, Rigid Additional comments: ostomy site pink, no drainage/warmth/redness/fluctuance appreciated. Mildly TTP in LUQ, near ostomy site. absent: Distended, rebound, rigidity. - Extremities Exam Extremities exam: normal inspection - Back Exam Back exam: NORMAL INSPECTION - Neurological Exam Neurological exam: Alert, Oriented x3 - Psychiatric Exam Psychiatric exam: Normal Affect, Normal Mood - Skin Skin Exam: Dry, Normal Color, Warm Discharge Plan - Discharge Medications Prescriptions: Metoclopramide [Reglan] 5 mg GT AC 7 Days dose Pantoprazole Sodium [Protonix] 40 mg PO BID 30 Days ect Phenol 1.4% Topical [Phenaseptic 1.4% Throat [place]] 1.2 ml MT Q2H PRN 14 Days bottle PRN Reason: Sore Throat predniSONE [predniSONE Tab] 40 mg PO DAILY 2 Days tab Simethicone [Mylicon Liq] 40 mg PO QID 14 Days ml Sucralfate [Carafate] 1 gm PO QID 14 Days oral.susp - Follow Up Plan Condition: GUARDED Disposition: HOME/ ROUTINE Instructions: Heart Failure (ED), Heart Failure (DC), COPD (Chronic Obstructive Pulmonary Disease) (DC), Abdominal Pain (ED) Additional Instructions: - Take Prednisone 40 mg for 2 days. - Take Sucralfate, simethicone for gas and reglan for nausea. - Take Phenol spray for sore throat. - Take Protonix 40 mg two times a day for heartburn symptoms. - Run your tube feeds slowly to avoid nausea and abdominal distention. - F/u with PMD in 1 week. - Return to ER if any concerns. Referrals: Donya Morris MD [Primary Care Provider] - <Ramona Mancia - Last Filed: 08/26/17 18:51> Provider - Provider Date of Admission: 08/23/17 12:52 Attending physician: Ramona Mancia MD Primary care physician: Donya Morris MD Hospital Course - Lab Results Lab Results: Most Recent Lab Values WBC 9.9 10^3/ul (4.5-11.0) D 08/26/17 07:00 RBC 4.18 10^6/uL (3.5-6.1) 08/26/17 07:00 Hgb 11.2 g/dL (12.0-16.0) L 08/26/17 07:00 Hct 36.0 % (36.0-48.0) 08/26/17 07:00 MCV 86.1 fl (80.0-105.0) 08/26/17 07:00 MCH 26.8 pg (25.0-35.0) 08/26/17 07:00 MCHC 31.1 g/dl (31.0-37.0) 08/26/17 07:00 RDW 13.9 % (11.5-14.5) 08/26/17 07:00 Plt Count 344 10^3/uL (120.0-450.0) 08/26/17 07:00 MPV 9.1 fl (7.0-11.0) 08/26/17 07:00 Gran % 80.2 % (50.0-68.0) H 08/26/17 07:00 Lymph % (Auto) 8.7 % (22.0-35.0) L 08/26/17 07:00 [place] % (Auto) 10.9 % (1.0-6.0) H 08/26/17 07:00 Eos % (Auto) 0.0 % (1.5-5.0) L 08/26/17 07:00 Baso % (Auto) 0.2 % (0.0-3.0) 08/26/17 07:00 Gran # 7.94 (1.4-6.5) H 08/26/17 07:00 Lymph # (Auto) 0.9 (1.2-3.4) L 08/26/17 07:00 [place] # (Auto) 1.1 (0.1-0.6) H 08/26/17 07:00 Eos # (Auto) 0.0 (0.0-0.7) 08/26/17 07:00 Baso # (Auto) 0.02 K/mm3 (0.0-2.0) 08/26/17 07:00 Neutrophils % (Manual) 89 % (50.0-70.0) H 08/23/17 11:20 Band Neutrophils % 3 % (0-2) H 08/23/17 11:20 Lymphocytes % (Manual) 4 % (22.0-35.0) L 08/23/17 11:20 Monocytes % (Manual) 4 % (1.0-6.0) 08/23/17 11:20 Platelet Evaluation Normal (NORMAL) 08/23/17 11:20 PT 11.9 SECONDS (9.4-12.5) 08/23/17 11:07 INR 1.03 (0.93-1.08) 08/23/17 11:07 APTT 28.2 Seconds (25.1-36.5) 08/24/17 08:00 pO2 83 mm/Hg (30-55) H 08/23/17 11:20 VBG pH 7.43 (7.32-7.43) 08/23/17 11:20 VBG pCO2 46.0 (40-60) 08/23/17 11:20 VBG HCO3 30.5 mmol/l (21-28) H 08/23/17 11:20 VBG Total CO2 31.9 mmol.L (22-28) H 08/23/17 11:20 VBG O2 Sat (Calc) 98.6 % (40-65) H 08/23/17 11:20 VBG Base Excess 5.3 mmol/L (0.0-2.0) H 08/23/17 11:20 VBG Potassium 4.5 mmol/L (3.6-5.2) 08/23/17 11:20 Sodium 133.0 mmol/L (132-148) 08/23/17 11:20 Chloride 99.0 mmol/L (98-107) 08/23/17 11:20 Glucose 158 mg/dl (65-105) H 08/23/17 11:20 Lactate 2.1 mmol/L (0.7-2.1) 08/23/17 11:20 FiO2 21.0 % 08/23/17 11:20 Sodium 142 mmol/L (132-148) 08/26/17 07:00 Potassium 4.0 mmol/L (3.6-5.0) 08/26/17 07:00 Chloride 103 mmol/L (98-107) 08/26/17 07:00 Carbon Dioxide 30 mmol/L (21-33) 08/26/17 07:00 Anion Gap 13 (10-20) 08/26/17 07:00 BUN 17 mg/dL (7-21) 08/26/17 07:00 Creatinine 0.6 mg/dl (0.7-1.2) L 08/26/17 07:00 Est GFR ( Amer) > 60 08/26/17 07:00 Est GFR (Non-Af Amer) > 60 08/26/17 07:00 POC Glucose (mg/dL) 115 mg/dL (65-110) H 08/26/17 11:20 Random Glucose 102 mg/dL (70-110) 08/26/17 07:00 Calcium 9.1 mg/dL (8.4-10.5) 08/26/17 07:00 Magnesium 2.2 mg/dL (1.7-2.2) 08/23/17 11:20 Total Bilirubin 0.2 mg/dL (0.2-1.3) 08/26/17 07:00 AST 52 U/L (14-36) H D 08/26/17 07:00 ALT 62 U/L (7-56) H 08/26/17 07:00 Alkaline Phosphatase 125 U/L (38-126) 08/26/17 07:00 Lactate Dehydrogenase 617 U/L (333-699) 08/23/17 11:20 Total Creatine Kinase 69 U/L (35-230) 08/23/17 11:20 Troponin I < 0.01 ng/mL D 08/23/17 11:20 NT-Pro-B Natriuret Pep 791 pg/mL (0-450) H 08/23/17 11:20 Total Protein 6.7 g/dL (5.8-8.3) 08/26/17 07:00 Albumin 3.6 g/dL (3.0-4.8) 08/26/17 07:00 Globulin 3.1 gm/dL 08/26/17 07:00 Albumin/Globulin Ratio 1.2 (1.1-1.8) 08/26/17 07:00 Amylase 76 U/L (35-125) 08/25/17 10:40 Lipase 177 U/L (23-300) 08/25/17 10:40 Procalcitonin 0.28 NG/ML (0.19-0.49) 08/24/17 07:00 Venous Blood Potassium 4.5 mmol/L (3.6-5.2) 08/23/17 11:20 Urine Color Yellow (YELLOW) 08/23/17 13:00 Urine Appearance Clear (CLEAR) 08/23/17 13:00 Urine pH 6.0 (4.7-8.0) 08/23/17 13:00 Ur Specific [place] 1.010 (1.005-1.035) 08/23/17 13:00 Urine Protein Negative mg/dL (<30 mg/dL) 08/23/17 13:00 Urine Glucose (UA) Negative mg/dL (NEGATIVE) 08/23/17 13:00 Urine Ketones Negative mg/dL (NEGATIVE) 08/23/17 13:00 Urine Blood Trace-intact (NEGATIVE) H 08/23/17 13:00 Urine Nitrate Negative (NEGATIVE) 08/23/17 13:00 Urine Bilirubin Negative (NEGATIVE) 08/23/17 13:00 Urine Urobilinogen 0.2 E.U./dL (<1 E.U./dL) 08/23/17 13:00 Ur Leukocyte Esterase Negative [place]/uL (NEGATIVE) 08/23/17 13:00 Urine RBC 5 - 10 /hpf (0-2) 08/23/17 13:00 Urine WBC 1 - 3 /hpf (0-6) 08/23/17 13:00 Ur Epithelial Cells 3 - 4 /hpf (0-5) 08/23/17 13:00 Urine Bacteria Few (NEG) 08/23/17 13:00 Influenza Typ A,B (EIA) Negative for flu a/b (NEGATIVE) 08/23/17 11:20 Attending/Attestation - Attestation I have personally seen and examined this patient.: Yes I have fully participated in the care of the patient.: Yes I have reviewed all pertinent clinical information, including history, physical exam and plan: Yes Notes (Text): 08/26/17 18:49 Patient was seen and examined with biomedical engineer. Family at bed side.Agreed with assessment and plan. 71F with PMH of DM, HTN, papillary thyroid cancer,SP thraceastomy and PEG tube, SP Radiation therapy, hypothyroidism, pneumonia, and COPD who presents to the ED complaining of cough, fever, and chills for 2 days duration, found to have COPD exacerbation, no Pneumonia on chest X ray. Cough and wheezing has improved . Epigastric pain is better, tolerating food, Patient will be discharged home on short course of prednisone, PPI and anti tussive. Patient will be discharged home and will follow up with PCP. Management plan was discussed in detail with patient. Education was provided.
== END 2017-08-26 15:51 | disposition home or self-care (01) | DRG 88 ==
LOC: ED 10:17 → ERH 12:52 → 3RNO 15:33
PROVIDERS: ADMIT Internal Medicine; ATTEND Internal Medicine
PROC: 3E0F7GC Introduction of Other Therapeutic Substance into Respiratory Tract, Via Natural or Artificial Opening (ICD-10-PCS; principal; 2017-08-23)
DX: J44.1 Chronic obstructive pulmonary disease with (acute) exacerbation (principal); Z93.0 Tracheostomy status; E11.9 Type 2 diabetes mellitus without complications; E03.9 Hypothyroidism, unspecified; E78.5 Hyperlipidemia, unspecified; R00.0 Tachycardia, unspecified; R14.0 Abdominal distension (gaseous); I10 Essential (primary) hypertension; Z93.1 Gastrostomy status; Z85.850 Personal history of malignant neoplasm of thyroid